=== PATIENT | male | born 1975 | race African-American/Black ===

== ENCOUNTER 2016-09-01 20:35 | Emergency (ER) | payer MEDICAID, OTHER ==
[~2016-09-01] VITALS: Ht 170.2 cm; Wt 95.5 kg
[~2016-09-01 20:35] MED LIST: BENZ1TAB70 PO; GLIM4 PO; HALO10 PO; METF500T4 PO; OLAN15TA2 PO
[2016-09-01 21:47] LABS: BASOPHILS % (AUTO) 0.8 % (0.0-2.0); EOSINOPHILS % (AUTO) 1.8 % (1.0-6.0); HEMATOCRIT 39.5 % (41-53); HEMOGLOBIN 13.1 g/dL (13.5-17.5); LYMPHOCYTES # (AUTO) 2.9 K/uL (1.0-4.8); LYMPHOCYTES % (AUTO) 52.8 % (22.0-44.0); MEAN CORPUSCULAR HEMOGLOBIN 31.1 pg (26.0-34.0); MEAN CORPUSCULAR HGB CONC 33.3 G/dL (31.0-37.0); MEAN CORPUSCULAR VOLUME 93 fL (80-100); MONOCYTES # (AUTO) 0.3 K/uL (0.1-1.0); MONOCYTES % (AUTO) 5.9 % (2.0-9.0); NEUTROPHILS # (AUTO) 2.1 K/uL (1.8-7.7); NEUTROPHILS % (AUTO) 38.7 % (40.0-70.0); PLATELET COUNT (AUTO) 179 K/uL (150-450); RED BLOOD CELL COUNT(AUTO) 4.22 MIL/uL (4.50-5.90); RED CELL DISTRIBUTION WIDTH 14.3 % (11.5-14.5); WHITE BLOOD COUNT (AUTO) 5.4 K/uL (4.5-11.0)
[2016-09-01 21:58] LABS: ANION GAP 10 mmol/L (8-16); CALCIUM, TOTAL 8.8 mg/dL (8.8-10.5); CARBON DIOXIDE 27 mmol/L (22-29); CHLORIDE 103 mmol/L (98-107); CREATININE 0.71 mg/dL (0.60-1.30); GLOMERULAR FILTR. RATE CALC > 60 mL/min (>60); POTASSIUM 3.7 mmol/L (3.5-5.1); SODIUM SERUM 140 mmol/L (136-145); UREA NITROGEN, BLOOD 7 mg/dL (7-18)
[2016-09-01 22:05] LABS: ALANINE AMINOTRANSFERASE 25 U/L (12-78); ALBUMIN 3.5 g/dL (3.4-5.0); ASPARTATE AMINOTRANSFERASE < 5 U/L (15-37); BILIRUBIN,TOTAL 0.3 mg/dL (0.1-1.0)
[2016-09-01 23:20] VITALS: BP 152/88
[2016-09-01] MEDS ORDERED: LORazepam 2 MG TABLET PO ONE (23:30)
[2016-09-01] MEDS ORDERED: OLANZapine 5 MG TABLET PO ONE (23:30)
== END 2016-09-01 23:36 | disposition home or self-care (01) ==
LOC: EMS 20:39
DX: F20.0 Paranoid schizophrenia (principal); F31.9 Bipolar disorder, unspecified; I10 Essential (primary) hypertension; E11.9 Type 2 diabetes mellitus without complications; F17.210 Nicotine dependence, cigarettes, uncomplicated
CPT/HCPCS: 36415; 80053; 80307; 85025; 99284; G0480

== ENCOUNTER 2016-09-13 14:38 | Inpatient (IN) | payer MEDICAID, OTHER ==
[~2016-09-13] VITALS: Ht 170.2 cm; Wt 90.5 kg
[2016-09-13 14:56] LABS: GLUCOSE,POINT OF CARE 112 MG/DL (70-110)
[2016-09-13 15:19] LABS: BASOPHILS % (AUTO) 0.8 % (0.0-2.0); EOSINOPHILS % (AUTO) 1.1 % (1.0-6.0); HEMATOCRIT 40.2 % (41-53); HEMOGLOBIN 13.1 g/dL (13.5-17.5); LYMPHOCYTES # (AUTO) 1.6 K/uL (1.0-4.8); LYMPHOCYTES % (AUTO) 44.1 % (22.0-44.0); MEAN CORPUSCULAR HEMOGLOBIN 30.9 pg (26.0-34.0); MEAN CORPUSCULAR HGB CONC 32.7 G/dL (31.0-37.0); MEAN CORPUSCULAR VOLUME 94 fL (80-100); MONOCYTES # (AUTO) 0.3 K/uL (0.1-1.0); MONOCYTES % (AUTO) 7.7 % (2.0-9.0); NEUTROPHILS # (AUTO) 1.7 K/uL (1.8-7.7); NEUTROPHILS % (AUTO) 46.3 % (40.0-70.0); PLATELET COUNT (AUTO) 198 K/uL (150-450); RED BLOOD CELL COUNT(AUTO) 4.26 MIL/uL (4.50-5.90); RED CELL DISTRIBUTION WIDTH 14.8 % (11.5-14.5); WHITE BLOOD COUNT (AUTO) 3.7 K/uL (4.5-11.0)
[2016-09-13 15:23] LABS: ANION GAP 9 mmol/L (8-16); CALCIUM, TOTAL 8.9 mg/dL (8.8-10.5); CARBON DIOXIDE 28 mmol/L (22-29); CHLORIDE 103 mmol/L (98-107); CREATININE 0.65 mg/dL (0.60-1.30); GLOMERULAR FILTR. RATE CALC > 60 mL/min (>60); POTASSIUM 3.2 mmol/L (3.5-5.1); SODIUM SERUM 140 mmol/L (136-145); UREA NITROGEN, BLOOD 13 mg/dL (7-18)
[2016-09-13 15:29] LABS: ALANINE AMINOTRANSFERASE 32 U/L (12-78); ALBUMIN 3.6 g/dL (3.4-5.0); ASPARTATE AMINOTRANSFERASE 9 U/L (15-37); BILIRUBIN,TOTAL 0.6 mg/dL (0.1-1.0); TOTAL PROTEIN, SERUM 7.2 g/dL (6.4-8.2)
[2016-09-13] MEDS ORDERED: ZOLPIDEM TARTRATE 10 MG TABLET PO PRN (17:00)
[2016-09-13] MEDS ORDERED: LORazepam 2 MG TABLET PO PRN (17:00)
[2016-09-13] MEDS ORDERED: HALOPERIDOL 5 MG TABLET PO PRN (17:00)
[2016-09-13] MEDS ORDERED: OLAN10TA3 PO (17:01)
[2016-09-13] MEDS ORDERED: POTASSIUM CHLORIDE 10% 40 MEQ/30 ML LIQUID UDCUP PO ONE (19:45)
[2016-09-13] MEDS ORDERED: -PHARMACY VACCINE NOTE- MISC ONE ×2 (23:00)
[2016-09-14 04:57] LABS: GLUCOSE,POINT OF CARE 117 MG/DL (70-110)
[2016-09-14 06:55] VITALS: BP 107/65
[2016-09-14 08:04] LABS: ALANINE AMINOTRANSFERASE 30 U/L (12-78); ALBUMIN 3.1 g/dL (3.4-5.0); ANION GAP 8 mmol/L (8-16); ASPARTATE AMINOTRANSFERASE 5 U/L (15-37); BILIRUBIN,TOTAL 0.5 mg/dL (0.1-1.0); CALCIUM, TOTAL 8.5 mg/dL (8.8-10.5); CARBON DIOXIDE 28 mmol/L (22-29); CHLORIDE 107 mmol/L (98-107); CREATININE 0.77 mg/dL (0.60-1.30); GLOMERULAR FILTR. RATE CALC > 60 mL/min (>60); POTASSIUM 3.6 mmol/L (3.5-5.1); SODIUM SERUM 143 mmol/L (136-145); TOTAL PROTEIN, SERUM 6.3 g/dL (6.4-8.2); UREA NITROGEN, BLOOD 13 mg/dL (7-18)
[2016-09-14 08:07] LABS: HEMOGLOBIN A1C 8.4 % (4.5-6.2)
[2016-09-14] MEDS: GLIMEPIRIDE 4 MG TABLET PO SCH (09:02)
[2016-09-14] MEDS: MetFORMIN HCL 500 MG TABLET PO SCH ×2 (09:03→16:25)
[2016-09-14] MEDS ORDERED: INSULIN ASPART 100 UNITS/ML SQ PRN (11:45)
[2016-09-14] MEDS ORDERED: GLUCAGON,HUMAN RECOMBINANT 1 MG VIAL IM PRN (11:45)
[2016-09-14 12:18] VITALS: BP 121/57
[2016-09-14 13:16] VITALS: BP 147/76
[2016-09-14 16:14] VITALS: BP 123/77
[2016-09-14] MEDS ORDERED: BENZTROPINE MESYLATE 1 MG TABLET PO ONE (20:00)
[2016-09-14] MEDS: OLANZapine 10 MG TABLET PO SCH (20:53)
[2016-09-14] MEDS: HALOPERIDOL 10 MG TABLET PO SCH (20:54)
[2016-09-15 00:09] VITALS: BP 132/77
[2016-09-15 06:22] LABS: GLUCOSE,POINT OF CARE 77 MG/DL (70-110)
[2016-09-15] MEDS: GLIMEPIRIDE 4 MG TABLET PO SCH (06:35)
[2016-09-15] MEDS: MetFORMIN HCL 500 MG TABLET PO SCH ×2 (06:35→16:52)
[2016-09-15] MEDS: BENZTROPINE MESYLATE 1 MG TABLET PO SCH ×2 (08:57→17:00)
[2016-09-15 09:00] VITALS: BP 139/79
[2016-09-15 11:26] LABS: GLUCOSE,POINT OF CARE 78 MG/DL (70-110)
[2016-09-15 16:11] VITALS: BP 127/73
[2016-09-15 17:23] LABS: GLUCOSE COMMENT 1 Received Meds; GLUCOSE,POINT OF CARE 112 MG/DL (70-110)
[2016-09-15] MEDS: OLANZapine 10 MG TABLET PO SCH (20:22)
[2016-09-15] MEDS: HALOPERIDOL 10 MG TABLET PO SCH (20:22)
[2016-09-15 22:02] LABS: GLUCOSE,POINT OF CARE 112 MG/DL (70-110)
[2016-09-16 00:59] VITALS: BP 140/80
[2016-09-16] MEDS: MetFORMIN HCL 500 MG TABLET PO SCH ×2 (06:27→16:12)
[2016-09-16 06:47] LABS: GLUCOSE,POINT OF CARE 99 MG/DL (70-110)
[2016-09-16] MEDS: GLIMEPIRIDE 4 MG TABLET PO SCH (07:01)
[2016-09-16 08:29] VITALS: BP 137/70
[2016-09-16] MEDS: BENZTROPINE MESYLATE 1 MG TABLET PO SCH ×2 (08:46→16:12)
[2016-09-16 11:32] LABS: GLUCOSE,POINT OF CARE 78 MG/DL (70-110)
[2016-09-16 11:32] LABS: GLUCOSE COMMENT 1 Juice/Food/D50 Given; GLUCOSE,POINT OF CARE 67 MG/DL (70-110)
[2016-09-16 16:11] LABS: GLUCOSE,POINT OF CARE 101 MG/DL (70-110)
[2016-09-16] MEDS: HALOPERIDOL 10 MG TABLET PO SCH (20:19)
[2016-09-16] MEDS: OLANZapine 10 MG TABLET PO SCH (20:19)
[2016-09-16 22:06] VITALS: BP 149/75
[2016-09-16 22:32] LABS: GLUCOSE,POINT OF CARE 84 MG/DL (70-110)
[2016-09-17 00:08] VITALS: BP 131/77
[2016-09-17 06:26] LABS: GLUCOSE,POINT OF CARE 77 MG/DL (70-110)
[2016-09-17] MEDS: MetFORMIN HCL 500 MG TABLET PO SCH ×2 (07:02→17:19)
[2016-09-17] MEDS: GLIMEPIRIDE 4 MG TABLET PO SCH (07:02)
[2016-09-17 08:39] VITALS: BP 136/81
[2016-09-17] MEDS: BENZTROPINE MESYLATE 1 MG TABLET PO SCH ×2 (08:41→17:19)
[2016-09-17 11:52] LABS: GLUCOSE,POINT OF CARE 109 MG/DL (70-110)
[2016-09-17 16:28] VITALS: BP 133/85
[2016-09-17 17:16] LABS: GLUCOSE,POINT OF CARE 87 MG/DL (70-110)
[2016-09-17] MEDS: HALOPERIDOL 10 MG TABLET PO SCH (20:35)
[2016-09-17] MEDS: OLANZapine 10 MG TABLET PO SCH (20:35)
[2016-09-17 20:46] LABS: GLUCOSE,POINT OF CARE 82 MG/DL (70-110)
[2016-09-18 00:10] VITALS: BP 131/63
[2016-09-18 06:36] LABS: GLUCOSE,POINT OF CARE 91 MG/DL (70-110)
[2016-09-18] MEDS: GLIMEPIRIDE 4 MG TABLET PO SCH (06:49)
[2016-09-18] MEDS: MetFORMIN HCL 500 MG TABLET PO SCH ×2 (06:49→17:07)
[2016-09-18 08:36] VITALS: BP 135/84
[2016-09-18] MEDS: BENZTROPINE MESYLATE 1 MG TABLET PO SCH ×2 (08:44→17:07)
[2016-09-18 11:22] LABS: GLUCOSE,POINT OF CARE 91 MG/DL (70-110)
[2016-09-18 16:21] VITALS: BP 143/88
[2016-09-18 16:56] LABS: GLUCOSE,POINT OF CARE 86 MG/DL (70-110)
[2016-09-18 20:11] LABS: GLUCOSE,POINT OF CARE 77 MG/DL (70-110)
[2016-09-18] MEDS: HALOPERIDOL 10 MG TABLET PO SCH (20:11)
[2016-09-18] MEDS: OLANZapine 10 MG TABLET PO SCH (20:11)
[2016-09-19 00:49] VITALS: BP 138/83
[2016-09-19 06:27] LABS: GLUCOSE,POINT OF CARE 88 MG/DL (70-110)
[2016-09-19] MEDS: GLIMEPIRIDE 4 MG TABLET PO SCH (06:49)
[2016-09-19] MEDS: MetFORMIN HCL 500 MG TABLET PO SCH ×2 (06:49→16:18)
[2016-09-19 08:56] VITALS: BP 133/65
[2016-09-19] MEDS: BENZTROPINE MESYLATE 1 MG TABLET PO SCH ×2 (09:14→16:18)
[2016-09-19 11:11] LABS: GLUCOSE,POINT OF CARE 113 MG/DL (70-110)
[2016-09-19 16:00] VITALS: BP 139/79
[2016-09-19 16:21] LABS: GLUCOSE,POINT OF CARE 110 MG/DL (70-110)
[2016-09-19] MEDS: OLANZapine 10 MG TABLET PO SCH (20:08)
[2016-09-19] MEDS: HALOPERIDOL 10 MG TABLET PO SCH (20:08)
[2016-09-19 20:11] LABS: GLUCOSE,POINT OF CARE 96 MG/DL (70-110)
[2016-09-20 04:49] VITALS: BP 130/75
[2016-09-20 06:32] LABS: GLUCOSE,POINT OF CARE 92 MG/DL (70-110)
[2016-09-20] MEDS: GLIMEPIRIDE 4 MG TABLET PO SCH (06:47)
[2016-09-20] MEDS: MetFORMIN HCL 500 MG TABLET PO SCH ×2 (06:47→16:15)
[2016-09-20] MEDS: BENZTROPINE MESYLATE 1 MG TABLET PO SCH ×2 (08:38→16:15)
[2016-09-20 08:52] VITALS: BP 135/86
[2016-09-20 11:27] LABS: GLUCOSE,POINT OF CARE 79 MG/DL (70-110)
[2016-09-20 16:33] VITALS: BP 140/77
[2016-09-20 19:16] LABS: GLUCOSE,POINT OF CARE 81 MG/DL (70-110)
[2016-09-20] MEDS: HALOPERIDOL 10 MG TABLET PO SCH (20:35)
[2016-09-20] MEDS: OLANZapine 10 MG TABLET PO SCH (20:35)
[2016-09-20 21:11] LABS: GLUCOSE,POINT OF CARE 92 MG/DL (70-110)
[2016-09-21 01:09] VITALS: BP 137/83
[2016-09-21 06:31] LABS: GLUCOSE,POINT OF CARE 93 MG/DL (70-110)
[2016-09-21] MEDS: GLIMEPIRIDE 4 MG TABLET PO SCH (06:54)
[2016-09-21] MEDS: MetFORMIN HCL 500 MG TABLET PO SCH (06:54)
[2016-09-21] MEDS: BENZTROPINE MESYLATE 1 MG TABLET PO SCH (08:42)
[2016-09-21 08:59] VITALS: BP 145/69
[2016-09-21 11:31] LABS: GLUCOSE,POINT OF CARE 81 MG/DL (70-110)
== END 2016-09-21 14:30 | disposition home or self-care (01) | DRG 750 ==
LOC: EMS 14:40 → AHU 20:26 → B2S 09-14 13:04
PROVIDERS: ADMIT Psychiatry & Neurology Psychiatry; ATTEND Psychiatry & Neurology Psychiatry
DX: F20.0 Paranoid schizophrenia (principal); R45.851 Suicidal ideations; E11.9 Type 2 diabetes mellitus without complications; D64.9 Anemia, unspecified; I10 Essential (primary) hypertension; E87.6 Hypokalemia; F17.210 Nicotine dependence, cigarettes, uncomplicated; F31.9 Bipolar disorder, unspecified; Z79.899 Other long term (current) drug therapy; Z79.84 Long term (current) use of oral hypoglycemic drugs
CPT/HCPCS: 82962; 83036; 99285; G0480

== ENCOUNTER 2016-10-03 16:49 | Emergency (ER) | payer MEDICAID, OTHER ==
[~2016-10-03] VITALS: Ht 170.2 cm; Wt 59.1 kg
[~2016-10-03 16:49] MED LIST changes: +OLAN10TA3 PO; -OLAN15TA2 PO
[2016-10-03 17:07] LABS: GLUCOSE,POINT OF CARE 103 MG/DL (70-110)
[2016-10-03 17:30] LABS: BASOPHILS % (AUTO) 1.4 % (0.0-2.0); EOSINOPHILS % (AUTO) 0.9 % (1.0-6.0); HEMATOCRIT 40.4 % (41-53); HEMOGLOBIN 13.1 g/dL (13.5-17.5); LYMPHOCYTES # (AUTO) 2.1 K/uL (1.0-4.8); LYMPHOCYTES % (AUTO) 37.8 % (22.0-44.0); MEAN CORPUSCULAR HGB CONC 32.5 G/dL (31.0-37.0); MEAN CORPUSCULAR VOLUME 95 fL (80-100); MONOCYTES # (AUTO) 0.2 K/uL (0.1-1.0); MONOCYTES % (AUTO) 4.3 % (2.0-9.0); NEUTROPHILS # (AUTO) 3.1 K/uL (1.8-7.7); NEUTROPHILS % (AUTO) 55.6 % (40.0-70.0); PLATELET COUNT (AUTO) 221 K/uL (150-450); RED BLOOD CELL COUNT(AUTO) 4.24 MIL/uL (4.50-5.90); RED CELL DISTRIBUTION WIDTH 15.4 % (11.5-14.5); WHITE BLOOD COUNT (AUTO) 5.5 K/uL (4.5-11.0)
[2016-10-03 17:40] LABS: ANION GAP 10 mmol/L (8-16); CALCIUM, TOTAL 9.1 mg/dL (8.8-10.5); CARBON DIOXIDE 30 mmol/L (22-29); CHLORIDE 109 mmol/L (98-107); CREATININE 0.75 mg/dL (0.60-1.30); GLOMERULAR FILTR. RATE CALC > 60 mL/min (>60); POTASSIUM 4.2 mmol/L (3.5-5.1); SODIUM SERUM 149 mmol/L (136-145); UREA NITROGEN, BLOOD 14 mg/dL (7-18)
[2016-10-03 17:46] LABS: ALANINE AMINOTRANSFERASE 33 U/L (12-78); ALBUMIN 3.8 g/dL (3.4-5.0); ASPARTATE AMINOTRANSFERASE 9 U/L (15-37); BILIRUBIN,TOTAL 0.5 mg/dL (0.1-1.0); TOTAL PROTEIN, SERUM 7.4 g/dL (6.4-8.2)
[2016-10-03] MEDS ORDERED: OLANZapine 5 MG TABLET PO ONE (20:15)
[2016-10-03 20:23] VITALS: BP 133/71
== END 2016-10-03 20:25 | disposition home or self-care (01) ==
LOC: EMS 16:51 → EEVIPCON 16:51 → EMS 20:25
DX: F20.0 Paranoid schizophrenia (principal); R42 Dizziness and giddiness; F31.9 Bipolar disorder, unspecified; E11.9 Type 2 diabetes mellitus without complications; I10 Essential (primary) hypertension; F17.210 Nicotine dependence, cigarettes, uncomplicated
CPT/HCPCS: 36415; 80053; 80307; 82962; 85025; 99284; G0480

== ENCOUNTER 2016-10-04 06:55 | Inpatient (IN) | payer MEDICAID, OTHER ==
[~2016-10-04] VITALS: Ht 170.2 cm; Wt 88.7 kg
[2016-10-04 07:41] LABS: BASOPHILS # (AUTO) 0.04 K/uL (0.00-0.20); BASOPHILS % (AUTO) 0.9 % (0.0-2.0); EOSINOPHILS # (AUTO) 0.09 K/uL (0.00-0.70); EOSINOPHILS % (AUTO) 1.97 % (1.0-6.0); HEMATOCRIT 41.9 % (41-53); LYMPHOCYTES # (AUTO) 1.7 K/uL (1.0-4.8); LYMPHOCYTES % (AUTO) 39.6 % (22.0-44.0); MEAN CORPUSCULAR HEMOGLOBIN 31.4 pg (26.0-34.0); MEAN CORPUSCULAR HGB CONC 33.3 G/dL (31.0-37.0); MEAN CORPUSCULAR VOLUME 94 fL (80-100); MONOCYTES # (AUTO) 0.3 K/uL (0.1-1.0); MONOCYTES % (AUTO) 7.6 % (2.0-9.0); NEUTROPHILS # (AUTO) 2.2 K/uL (1.8-7.7); NEUTROPHILS % (AUTO) 49.9 % (40.0-70.0); PLATELET COUNT (AUTO) 216 K/uL (150-450); RED BLOOD CELL COUNT(AUTO) 4.45 MIL/uL (4.50-5.90); WHITE BLOOD COUNT (AUTO) 4.4 K/uL (4.5-11.0)
[2016-10-04 07:42] LABS: GLUCOSE,POINT OF CARE 126 MG/DL (70-110)
[2016-10-04] MEDS ORDERED: DiphenhydrAMINE HCL 25 MG CAPSULE PO ONE (07:45)
[2016-10-04] MEDS ORDERED: HALOPERIDOL 5 MG TABLET PO ONE (07:45)
[2016-10-04 07:51] LABS: ANION GAP 8 mmol/L (8-16); CARBON DIOXIDE 30 mmol/L (22-29); CHLORIDE 104 mmol/L (98-107); CREATININE 0.72 mg/dL (0.60-1.30); GLOMERULAR FILTR. RATE CALC > 60 mL/min (>60); POTASSIUM 3.8 mmol/L (3.5-5.1); SODIUM SERUM 142 mmol/L (136-145); UREA NITROGEN, BLOOD 15 mg/dL (7-18)
[2016-10-04 07:57] LABS: ALANINE AMINOTRANSFERASE 33 U/L (12-78); ALBUMIN 3.7 g/dL (3.4-5.0); ASPARTATE AMINOTRANSFERASE 5 U/L (15-37); BILIRUBIN,TOTAL 0.5 mg/dL (0.1-1.0); TOTAL PROTEIN, SERUM 7.5 g/dL (6.4-8.2)
[2016-10-04] MEDS ORDERED: ZOLPIDEM TARTRATE 10 MG TABLET PO PRN (08:00)
[2016-10-04] MEDS ORDERED: LORazepam 2 MG TABLET PO PRN (08:00)
[2016-10-04] MEDS ORDERED: HALOPERIDOL 5 MG TABLET PO PRN (08:00)
[2016-10-04] MEDS ORDERED: -PHARMACY VACCINE NOTE- MISC ONE ×2 (13:15)
[2016-10-04 14:07] LABS: GLUCOSE,POINT OF CARE 179 MG/DL (70-110)
[2016-10-04] MEDS ORDERED: INSULIN ASPART 100 UNITS/ML SQ PRN (14:30)
[2016-10-04] MEDS ORDERED: GLUCAGON,HUMAN RECOMBINANT 1 MG VIAL IM PRN (15:30)
[2016-10-04 16:11] VITALS: BP 139/81
[2016-10-04] MEDS: GLIMEPIRIDE 4 MG TABLET PO SCH (16:12)
[2016-10-04] MEDS: MetFORMIN HCL 500 MG TABLET PO SCH (16:13)
[2016-10-04 16:52] LABS: GLUCOSE,POINT OF CARE 137 MG/DL (70-110)
[2016-10-04] MEDS ORDERED: LISINOPRIL 20 MG TABLET PO SCH (17:00)
[2016-10-04 20:20] VITALS: BP 128/80
[2016-10-05 06:12] LABS: GLUCOSE,POINT OF CARE 70 MG/DL (70-110)
[2016-10-05 06:35] VITALS: BP 139/79
[2016-10-05] MEDS: GLIMEPIRIDE 4 MG TABLET PO SCH (06:37)
[2016-10-05] MEDS: MetFORMIN HCL 500 MG TABLET PO SCH ×3 (06:37→19:13)
[2016-10-05 08:17] VITALS: BP 111/54
[2016-10-05] MEDS: LISINOPRIL 10 MG TABLET PO SCH ×2 (08:39→17:36)
[2016-10-05 08:40] VITALS: BP 138/81
[2016-10-05] MEDS: BENZTROPINE MESYLATE 1 MG TABLET PO SCH ×2 (09:36→17:36)
[2016-10-05 11:07] LABS: GLUCOSE,POINT OF CARE 62 MG/DL (70-110)
[2016-10-05 11:22] LABS: GLUCOSE,POINT OF CARE 84 MG/DL (70-110)
[2016-10-05 17:00] VITALS: BP 135/79
[2016-10-05] MEDS: OLANZapine 10 MG TABLET PO SCH (21:40)
[2016-10-05] MEDS: HALOPERIDOL 10 MG TABLET PO SCH (21:40)
[2016-10-05 23:51] LABS: GLUCOSE,POINT OF CARE 60 MG/DL (70-110)
[2016-10-05 23:56] LABS: GLUCOSE,POINT OF CARE 73 MG/DL (70-110)
[2016-10-06 00:15] VITALS: BP 138/88
[2016-10-06 06:22] LABS: GLUCOSE,POINT OF CARE 72 MG/DL (70-110)
[2016-10-06] MEDS: GLIMEPIRIDE 4 MG TABLET PO SCH (06:43)
[2016-10-06] MEDS: MetFORMIN HCL 500 MG TABLET PO SCH ×2 (07:01→18:53)
[2016-10-06 08:00] VITALS: BP 139/63
[2016-10-06] MEDS: LISINOPRIL 10 MG TABLET PO SCH ×2 (09:24→18:53)
[2016-10-06] MEDS: BENZTROPINE MESYLATE 1 MG TABLET PO SCH ×2 (09:24→18:53)
[2016-10-06] MEDS: HALOPERIDOL 10 MG TABLET PO SCH (22:18)
[2016-10-06] MEDS: OLANZapine 10 MG TABLET PO SCH (22:18)
[2016-10-07 06:29] VITALS: BP 143/89
[2016-10-07 07:11] LABS: GLUCOSE,POINT OF CARE 78 MG/DL (70-110)
[2016-10-07] MEDS: GLIMEPIRIDE 4 MG TABLET PO SCH (07:17)
[2016-10-07] MEDS: MetFORMIN HCL 500 MG TABLET PO SCH ×2 (07:18→17:42)
[2016-10-07 08:52] VITALS: BP 129/76
[2016-10-07] MEDS: BENZTROPINE MESYLATE 1 MG TABLET PO SCH ×2 (10:16→17:43)
[2016-10-07] MEDS: LISINOPRIL 10 MG TABLET PO SCH ×2 (10:16→17:43)
[2016-10-07 16:14] VITALS: BP 123/77
[2016-10-07 18:21] LABS: GLUCOSE,POINT OF CARE 121 MG/DL (70-110)
[2016-10-07] MEDS: OLANZapine 10 MG TABLET PO SCH (21:00)
[2016-10-07] MEDS: HALOPERIDOL 10 MG TABLET PO SCH (21:00)
[2016-10-08 06:56] VITALS: BP 133/75
[2016-10-08 07:01] LABS: GLUCOSE,POINT OF CARE 81 MG/DL (70-110)
[2016-10-08] MEDS: GLIMEPIRIDE 4 MG TABLET PO SCH (07:02)
[2016-10-08] MEDS: MetFORMIN HCL 500 MG TABLET PO SCH ×2 (07:02→16:52)
[2016-10-08] MEDS: BENZTROPINE MESYLATE 1 MG TABLET PO SCH ×2 (08:56→16:52)
[2016-10-08] MEDS: LISINOPRIL 10 MG TABLET PO SCH ×2 (08:56→16:52)
[2016-10-08 10:03] VITALS: BP 134/91
[2016-10-08 16:25] VITALS: BP 133/91
[2016-10-08] MEDS: HALOPERIDOL 10 MG TABLET PO SCH (21:25)
[2016-10-08] MEDS: OLANZapine 10 MG TABLET PO SCH (21:26)
[2016-10-09 06:27] LABS: GLUCOSE,POINT OF CARE 90 MG/DL (70-110)
[2016-10-09 06:32] VITALS: BP 122/86
[2016-10-09] MEDS: MetFORMIN HCL 500 MG TABLET PO SCH ×2 (06:48→16:49)
[2016-10-09] MEDS: GLIMEPIRIDE 4 MG TABLET PO SCH (06:49)
[2016-10-09 08:53] VITALS: BP 127/74
[2016-10-09] MEDS: BENZTROPINE MESYLATE 1 MG TABLET PO SCH ×2 (09:14→16:49)
[2016-10-09] MEDS: LISINOPRIL 10 MG TABLET PO SCH ×2 (09:14→16:49)
[2016-10-09 16:20] VITALS: BP 145/81
[2016-10-09] MEDS: OLANZapine 10 MG TABLET PO SCH (21:06)
[2016-10-09] MEDS: HALOPERIDOL 10 MG TABLET PO SCH (21:06)
[2016-10-10 01:55] VITALS: BP 136/87
[2016-10-10] MEDS: MetFORMIN HCL 500 MG TABLET PO SCH ×2 (06:34→16:44)
[2016-10-10] MEDS: GLIMEPIRIDE 4 MG TABLET PO SCH (06:34)
[2016-10-10 06:36] LABS: GLUCOSE,POINT OF CARE 81 MG/DL (70-110)
[2016-10-10] MEDS ORDERED: LISI-661 PO (08:15)
[2016-10-10 09:47] VITALS: BP 117/68
[2016-10-10] MEDS: BENZTROPINE MESYLATE 1 MG TABLET PO SCH ×2 (09:57→16:44)
[2016-10-10] MEDS: LISINOPRIL 10 MG TABLET PO SCH ×2 (09:57→16:44)
[2016-10-10 10:00] VITALS: BP 125/62
[2016-10-10 16:20] VITALS: BP 131/86
[2016-10-10] MEDS: HALOPERIDOL 10 MG TABLET PO SCH (20:39)
[2016-10-10] MEDS: OLANZapine 10 MG TABLET PO SCH (20:39)
[2016-10-11 06:00] VITALS: BP 140/86
[2016-10-11 06:12] LABS: GLUCOSE,POINT OF CARE 85 MG/DL (70-110)
[2016-10-11] MEDS: MetFORMIN HCL 500 MG TABLET PO SCH (06:55)
[2016-10-11] MEDS: GLIMEPIRIDE 4 MG TABLET PO SCH (06:55)
[2016-10-11 09:15] VITALS: BP 107/58
[2016-10-11] MEDS: LISINOPRIL 10 MG TABLET PO SCH (09:58)
[2016-10-11] MEDS: BENZTROPINE MESYLATE 1 MG TABLET PO SCH (09:58)
== END 2016-10-11 14:35 | disposition home or self-care (01) | DRG 750 ==
LOC: EMS 06:56 → B2S 11:33
PROVIDERS: ADMIT Psychiatry & Neurology Psychiatry; ATTEND Psychiatry & Neurology Psychiatry
DX: F20.0 Paranoid schizophrenia (principal); E11.9 Type 2 diabetes mellitus without complications; I10 Essential (primary) hypertension; F31.9 Bipolar disorder, unspecified; F17.210 Nicotine dependence, cigarettes, uncomplicated; Z71.6 Tobacco abuse counseling; Z79.899 Other long term (current) drug therapy; Z86.73 Personal history of transient ischemic attack (TIA), and cerebral infarction without residual deficits; Z79.84 Long term (current) use of oral hypoglycemic drugs; Z83.3 Family history of diabetes mellitus; Z82.49 Family history of ischemic heart disease and other diseases of the circulatory system
CPT/HCPCS: 82962; 87081; 99285; 99406; G0480

== ENCOUNTER 2018-01-11 18:20 | Inpatient (IN) | payer MEDICAID, OTHER ==
[~2018-01-11] VITALS: Ht 170.2 cm; Wt 77.1 kg
[~2018-01-11 18:20] MED LIST changes: +LISI-661 PO; +METF-444 PO; -METF500T4 PO
[2018-01-11 21:57] LABS: GLUCOSE,POINT OF CARE 105 MG/DL (70-110)
[2018-01-11 21:59] LABS: BASOPHILS % (AUTO) 1.1 % (0.0-2.0); EOSINOPHILS % (AUTO) 1.1 % (1.0-6.0); HEMATOCRIT 43.1 % (41-53); HEMOGLOBIN 14.5 g/dL (13.5-17.5); LYMPHOCYTES # (AUTO) 1.9 K/uL (1.0-4.8); LYMPHOCYTES % (AUTO) 45.5 % (22.0-44.0); MEAN CORPUSCULAR HEMOGLOBIN 30.9 pg (26.0-34.0); MEAN CORPUSCULAR HGB CONC 33.6 G/dL (31.0-37.0); MEAN CORPUSCULAR VOLUME 92 fL (80-100); MONOCYTES # (AUTO) 0.3 K/uL (0.1-1.0); NEUTROPHILS # (AUTO) 1.8 K/uL (1.8-7.7); NEUTROPHILS % (AUTO) 44.3 % (40.0-70.0); PLATELET COUNT (AUTO) 204 K/uL (150-450); RED BLOOD CELL COUNT(AUTO) 4.69 MIL/uL (4.50-5.90); RED CELL DISTRIBUTION WIDTH 14.9 % (11.5-14.5)
[2018-01-11 22:14] LABS: AMPHET/METH SCREEN,URINE NEGATIVE (NEGATIVE); BARBITURATE SCREEN, URINE NEGATIVE (NEGATIVE); BENZODIAZEPINES SCREEN,URINE NEGATIVE (NEGATIVE); CANNABINOID SCREEN,URINE NEGATIVE (NEGATIVE); COCAINE SCREEN,URINE NEGATIVE (NEGATIVE); METHADONE SCREEN, URINE NEGATIVE (NEGATIVE); OPIATE SCREEN,URINE NEGATIVE (NEGATIVE)
[2018-01-11 22:15] LABS: ANION GAP 6 mmol/L (8-16); CALCIUM, TOTAL 8.9 mg/dL (8.8-10.5); CARBON DIOXIDE 30 mmol/L (22-29); CHLORIDE 106 mmol/L (98-107); GLOMERULAR FILTR. RATE CALC > 60 mL/min (>60); GLUCOSE,RANDOM 106 mg/dL (70-110); POTASSIUM 4.3 mmol/L (3.5-5.1); SODIUM SERUM 142 mmol/L (136-145); UREA NITROGEN, BLOOD 14 mg/dL (7-18)
[2018-01-11 22:22] LABS: ALANINE AMINOTRANSFERASE 28 U/L (12-78); ALKALINE PHOSPHATASE 101 U/L (46-116); ASPARTATE AMINOTRANSFERASE 5 U/L (15-37); BILIRUBIN,TOTAL 0.5 mg/dL (0.1-1.0); TOTAL PROTEIN, SERUM 7.7 g/dL (6.4-8.2)
[2018-01-11 22:27] LABS: PHENCYCLIDINE SCREEN,URINE NEGATIVE (NEGATIVE)
[2018-01-12 03:00] LABS: CHOL/HDL RATIO 2.3 (4.2-7.3); CHOLESTEROL 150 mg/dL (131-200); HDL CHOLESTEROL 65 mg/dL (40-60); LDL CHOL (CALC.) 72 mg/dL (0-130); TRIGLYCERIDES 64 mg/dL (15-150)
[2018-01-12] MEDS ORDERED: LORazepam 2 MG/ML VIAL IM ONE ×2 (10:15→18:30)
[2018-01-12] MEDS ORDERED: DiphenhydrAMINE HCL 50 MG/ML VIAL IM ONE ×2 (10:15→18:30)
[2018-01-12] MEDS ORDERED: HALOPERIDOL LACTATE 5 MG/ML VIAL IM ONE ×2 (10:15→18:30)
[2018-01-12 11:32] VITALS: BP 149/90
[2018-01-12] MEDS ORDERED: INSULIN LISPRO 100 UNITS/ML SQ PRN (13:15)
[2018-01-12] MEDS ORDERED: GLUCAGON,HUMAN RECOMBINANT 1 MG VIAL IM PRN (13:15)
[2018-01-12 15:09] VITALS: BP 126/87
[2018-01-12 16:26] VITALS: BP 133/76
[2018-01-12 16:59] LABS: GLUCOMETER DEV NAME(LOC) BV2S 2; GLUCOSE,POINT OF CARE 102 MG/DL (70-110)
[2018-01-12] MEDS: SULFAMETHOX/TRIMETH DS 800-160 MG/TABLET PO SCH (17:00)
[2018-01-12] MEDS: BACITRACIN 28.4 GM OINTMENT TP SCH (17:00)
[2018-01-12] MEDS: MetFORMIN HCL 500 MG TABLET PO SCH (17:11)
[2018-01-12] MEDS: LISINOPRIL 10 MG TABLET PO SCH (17:12)
[2018-01-12] MEDS ORDERED: LORazepam 2 MG/ML VIAL ONE (18:22)
[2018-01-12] MEDS ORDERED: DiphenhydrAMINE HCL 50 MG/ML VIAL ONE (18:23)
[2018-01-12] MEDS ORDERED: HALOPERIDOL LACTATE 5 MG/ML VIAL ONE (18:23)
[2018-01-12 19:30] VITALS: BP_SYST 133; BP_SYST 135; BP_DIAS 67
[2018-01-12] MEDS ORDERED: DOCUSATE SODIUM 100 MG CAPSULE PO PRN (21:45)
[2018-01-12] MEDS ORDERED: PETROLATUM,WHITE 71 GM JELLY TP PRN (21:45)
[2018-01-12] MEDS ORDERED: MAGNESIUM HYDROXIDE SUSPENSION 30 ML UDCUP PO PRN (21:45)
[2018-01-12] MEDS ORDERED: ACETAMINOPHEN 325 MG TABLET PO PRN (21:45)
[2018-01-12] MEDS ORDERED: ONDANSETRON HCL 4 MG TABLET PO PRN (21:45)
[2018-01-12] MEDS ORDERED: IBUPROFEN 400 MG TABLET PO PRN (21:45)
[2018-01-12] MEDS ORDERED: ALBUTEROL SULFATE HFA 90 MCG/PUFF 8 GM INHALER IH PRN (21:45)
[2018-01-12] MEDS ORDERED: MAG HYDROX/AL HYDROX/SIMETH ES 30 ML SUSPENSION UDCUP PO PRN (21:45)
[2018-01-13 05:52] VITALS: BP 130/86
[2018-01-13 06:24] LABS: GLUCOMETER DEV NAME(LOC) BV2S 2; GLUCOSE,POINT OF CARE 81 MG/DL (70-110)
[2018-01-13] MEDS: MetFORMIN HCL 500 MG TABLET PO SCH ×2 (06:45→17:46)
[2018-01-13 08:01] LABS: HEMOGLOBIN A1C 6.4 % (4.5-6.2)
[2018-01-13 08:47] LABS: CHOL/HDL RATIO 2.6 (4.2-7.3)
[2018-01-13 08:48] VITALS: BP 139/78
[2018-01-13] MEDS: SULFAMETHOX/TRIMETH DS 800-160 MG/TABLET PO SCH ×2 (08:59→17:46)
[2018-01-13] MEDS: BACITRACIN 28.4 GM OINTMENT TP SCH ×2 (08:59→17:48)
[2018-01-13] MEDS: NICOTINE 14 MG/24 HOUR PATCH TD SCH (09:00)
[2018-01-13] MEDS: LISINOPRIL 10 MG TABLET PO SCH ×2 (09:00→17:47)
[2018-01-13] MEDS: HALOPERIDOL 5 MG TABLET PO PRN (09:12)
[2018-01-13] MEDS: LORazepam 2 MG TABLET PO PRN (09:12)
[2018-01-13 11:09] LABS: GLUCOMETER DEV NAME(LOC) BV2S 2; GLUCOSE,POINT OF CARE 87 MG/DL (70-110)
[2018-01-13 16:13] VITALS: BP 127/85
[2018-01-13 18:19] LABS: GLUCOMETER DEV NAME(LOC) BV2S 2; GLUCOSE,POINT OF CARE 135 MG/DL (70-110)
[2018-01-13] MEDS: HALOPERIDOL 5 MG TABLET PO SCH (20:36)
[2018-01-13 21:00] VITALS: BP 110/60
[2018-01-14 06:23] LABS: GLUCOMETER DEV NAME(LOC) BV2S 2; GLUCOSE,POINT OF CARE 96 MG/DL (70-110)
[2018-01-14 06:53] VITALS: BP 112/63
[2018-01-14] MEDS: MetFORMIN HCL 500 MG TABLET PO SCH ×2 (07:02→16:28)
[2018-01-14 07:33] LABS: GLUCOMETER DEV NAME(LOC) BV2S 2; GLUCOSE,POINT OF CARE 77 MG/DL (70-110)
[2018-01-14 08:00] VITALS: BP 146/71
[2018-01-14] MEDS: SULFAMETHOX/TRIMETH DS 800-160 MG/TABLET PO SCH ×2 (09:09→16:23)
[2018-01-14] MEDS: BENZTROPINE MESYLATE 1 MG TABLET PO SCH ×2 (09:09→16:23)
[2018-01-14] MEDS: NICOTINE 14 MG/24 HOUR PATCH TD SCH (09:10)
[2018-01-14] MEDS: LISINOPRIL 10 MG TABLET PO SCH ×2 (09:10→16:23)
[2018-01-14] MEDS: BACITRACIN 28.4 GM OINTMENT TP SCH ×2 (09:11→16:28)
[2018-01-14 11:02] LABS: GLUCOMETER DEV NAME(LOC) BV2S 2; GLUCOSE,POINT OF CARE 96 MG/DL (70-110)
[2018-01-14 16:20] VITALS: BP 132/82
[2018-01-14 17:23] LABS: GLUCOMETER DEV NAME(LOC) BV2S 2; GLUCOSE,POINT OF CARE 94 MG/DL (70-110)
[2018-01-14] MEDS: LORazepam 2 MG TABLET PO PRN (18:06)
[2018-01-14] MEDS: ZOLPIDEM TARTRATE 10 MG TABLET PO PRN (20:32)
[2018-01-14] MEDS: HALOPERIDOL 5 MG TABLET PO SCH (20:32)
[2018-01-14 21:03] LABS: GLUCOMETER DEV NAME(LOC) BV2S 2; GLUCOSE,POINT OF CARE 81 MG/DL (70-110)
[2018-01-15 05:45] VITALS: BP 116/74
[2018-01-15 07:08] LABS: GLUCOMETER DEV NAME(LOC) BV2S 2; GLUCOSE,POINT OF CARE 86 MG/DL (70-110)
[2018-01-15] MEDS: MetFORMIN HCL 500 MG TABLET PO SCH ×2 (07:11→16:59)
[2018-01-15 08:01] LABS: BASOPHILS % (AUTO) 0.6 % (0.0-2.0); EOSINOPHILS % (AUTO) 3.8 % (1.0-6.0); HEMATOCRIT 39.2 % (41-53); HEMOGLOBIN 13.2 g/dL (13.5-17.5); LYMPHOCYTES # (AUTO) 1.6 K/uL (1.0-4.8); LYMPHOCYTES % (AUTO) 57.1 % (22.0-44.0); MEAN CORPUSCULAR HEMOGLOBIN 30.7 pg (26.0-34.0); MEAN CORPUSCULAR HGB CONC 33.6 G/dL (31.0-37.0); MEAN CORPUSCULAR VOLUME 91 fL (80-100); MONOCYTES # (AUTO) 0.3 K/uL (0.1-1.0); MONOCYTES % (AUTO) 10.3 % (2.0-9.0); NEUTROPHILS # (AUTO) 0.8 K/uL (1.8-7.7); NEUTROPHILS % (AUTO) 28.2 % (40.0-70.0); PLATELET COUNT (AUTO) 189 K/uL (150-450); RED BLOOD CELL COUNT(AUTO) 4.29 MIL/uL (4.50-5.90); RED CELL DISTRIBUTION WIDTH 14.7 % (11.5-14.5)
[2018-01-15 08:30] VITALS: BP 133/75
[2018-01-15] MEDS: SULFAMETHOX/TRIMETH DS 800-160 MG/TABLET PO SCH ×2 (08:44→16:59)
[2018-01-15] MEDS: LISINOPRIL 10 MG TABLET PO SCH ×2 (08:44→16:59)
[2018-01-15] MEDS: BENZTROPINE MESYLATE 1 MG TABLET PO SCH ×2 (08:44→16:59)
[2018-01-15] MEDS: BACITRACIN 28.4 GM OINTMENT TP SCH ×2 (08:44→16:59)
[2018-01-15] MEDS: NICOTINE 14 MG/24 HOUR PATCH TD SCH (08:49)
[2018-01-15 11:49] LABS: GLUCOMETER DEV NAME(LOC) BV2S 2; GLUCOSE,POINT OF CARE 98 MG/DL (70-110)
[2018-01-15 16:38] VITALS: BP 122/71
[2018-01-15 16:54] LABS: GLUCOMETER DEV NAME(LOC) BV2S 2; GLUCOSE,POINT OF CARE 91 MG/DL (70-110)
[2018-01-15] MEDS: LORazepam 2 MG TABLET PO PRN (16:59)
[2018-01-15] MEDS: THIAMINE HCL 100 MG TABLET PO SCH (16:59)
[2018-01-15] MEDS: FOLIC ACID 1 MG TABLET PO SCH (16:59)
[2018-01-15] MEDS: HALOPERIDOL 5 MG TABLET PO SCH (20:18)
[2018-01-15] MEDS: ZOLPIDEM TARTRATE 10 MG TABLET PO PRN (20:53)
[2018-01-15 21:18] LABS: GLUCOMETER DEV NAME(LOC) BV2S 2; GLUCOSE,POINT OF CARE 88 MG/DL (70-110)
[2018-01-16 03:35] VITALS: BP 103/60
[2018-01-16] MEDS: MetFORMIN HCL 500 MG TABLET PO SCH ×2 (07:02→16:33)
[2018-01-16 07:09] LABS: GLUCOMETER DEV NAME(LOC) BV2S 2; GLUCOSE,POINT OF CARE 78 MG/DL (70-110)
[2018-01-16] MEDS: THIAMINE HCL 100 MG TABLET PO SCH ×2 (08:51→16:10)
[2018-01-16] MEDS: FOLIC ACID 1 MG TABLET PO SCH ×2 (08:51→16:10)
[2018-01-16] MEDS: LISINOPRIL 10 MG TABLET PO SCH ×2 (08:51→16:10)
[2018-01-16] MEDS: SULFAMETHOX/TRIMETH DS 800-160 MG/TABLET PO SCH ×2 (08:51→16:10)
[2018-01-16] MEDS: BENZTROPINE MESYLATE 1 MG TABLET PO SCH ×2 (08:51→16:10)
[2018-01-16] MEDS: LORazepam 2 MG TABLET PO PRN ×2 (08:51→16:56)
[2018-01-16] MEDS: NICOTINE 14 MG/24 HOUR PATCH TD SCH (08:51)
[2018-01-16] MEDS: HALOPERIDOL 5 MG TABLET PO PRN (08:51)
[2018-01-16 08:52] VITALS: BP 131/74
[2018-01-16] MEDS: BACITRACIN 28.4 GM OINTMENT TP SCH ×2 (08:52→16:15)
[2018-01-16 11:10] LABS: GLUCOMETER DEV NAME(LOC) BV2S 2; GLUCOSE,POINT OF CARE 91 MG/DL (70-110)
[2018-01-16 16:14] VITALS: BP 118/68
[2018-01-16 17:07] LABS: GLUCOMETER DEV NAME(LOC) BV2S 2; GLUCOSE,POINT OF CARE 98 MG/DL (70-110)
[2018-01-16] MEDS: HALOPERIDOL 5 MG TABLET PO SCH (20:16)
[2018-01-16] MEDS: ZOLPIDEM TARTRATE 10 MG TABLET PO PRN (20:16)
[2018-01-16 21:17] LABS: GLUCOMETER DEV NAME(LOC) BV2S 2; GLUCOSE,POINT OF CARE 87 MG/DL (70-110)
[2018-01-17 03:55] VITALS: BP 124/74
[2018-01-17 06:31] LABS: GLUCOMETER DEV NAME(LOC) BV2S 2; GLUCOSE,POINT OF CARE 80 MG/DL (70-110)
[2018-01-17] MEDS: MetFORMIN HCL 500 MG TABLET PO SCH ×2 (06:37→16:57)
[2018-01-17 08:51] VITALS: BP 126/67
[2018-01-17] MEDS: THIAMINE HCL 100 MG TABLET PO SCH ×2 (09:39→16:58)
[2018-01-17] MEDS: SULFAMETHOX/TRIMETH DS 800-160 MG/TABLET PO SCH ×2 (09:39→16:57)
[2018-01-17] MEDS: LISINOPRIL 10 MG TABLET PO SCH ×2 (09:39→16:58)
[2018-01-17] MEDS: FOLIC ACID 1 MG TABLET PO SCH ×2 (09:39→16:58)
[2018-01-17] MEDS: BENZTROPINE MESYLATE 1 MG TABLET PO SCH ×2 (09:39→16:58)
[2018-01-17] MEDS: NICOTINE 14 MG/24 HOUR PATCH TD SCH (09:44)
[2018-01-17] MEDS: BACITRACIN 28.4 GM OINTMENT TP SCH (09:44)
[2018-01-17 15:14] LABS: GLUCOMETER DEV NAME(LOC) BV2S 2; GLUCOSE,POINT OF CARE 75 MG/DL (70-110)
[2018-01-17 16:17] VITALS: BP 132/70
[2018-01-17 17:02] LABS: GLUCOMETER DEV NAME(LOC) BV2S 2; GLUCOSE,POINT OF CARE 111 MG/DL (70-110)
[2018-01-17] MEDS: HALOPERIDOL 5 MG TABLET PO SCH (20:24)
[2018-01-17] MEDS: ZOLPIDEM TARTRATE 10 MG TABLET PO PRN (20:45)
[2018-01-17 21:04] LABS: GLUCOMETER DEV NAME(LOC) BV2S 2; GLUCOSE,POINT OF CARE 94 MG/DL (70-110)
[2018-01-18 06:14] VITALS: BP 130/86
[2018-01-18] MEDS: MetFORMIN HCL 500 MG TABLET PO SCH ×2 (06:37→16:50)
[2018-01-18 06:41] LABS: GLUCOMETER DEV NAME(LOC) BV2S 2; GLUCOSE,POINT OF CARE 85 MG/DL (70-110)
[2018-01-18 08:00] VITALS: BP 114/67
[2018-01-18] MEDS: SULFAMETHOX/TRIMETH DS 800-160 MG/TABLET PO SCH ×2 (08:37→16:50)
[2018-01-18] MEDS: NICOTINE 14 MG/24 HOUR PATCH TD SCH (08:37)
[2018-01-18] MEDS: THIAMINE HCL 100 MG TABLET PO SCH ×2 (08:37→16:50)
[2018-01-18] MEDS: BENZTROPINE MESYLATE 1 MG TABLET PO SCH ×2 (08:38→16:50)
[2018-01-18] MEDS: LISINOPRIL 10 MG TABLET PO SCH ×2 (08:38→16:51)
[2018-01-18] MEDS: FOLIC ACID 1 MG TABLET PO SCH ×2 (08:38→16:52)
[2018-01-18 11:00] LABS: GLUCOMETER DEV NAME(LOC) BV2S 2; GLUCOSE,POINT OF CARE 86 MG/DL (70-110)
[2018-01-18 16:40] VITALS: BP 118/63
[2018-01-18 16:40] LABS: GLUCOMETER DEV NAME(LOC) BV2S 2; GLUCOSE,POINT OF CARE 93 MG/DL (70-110)
[2018-01-18] MEDS: LORazepam 2 MG TABLET PO PRN (20:35)
[2018-01-18] MEDS: HALOPERIDOL 5 MG TABLET PO SCH (20:35)
[2018-01-18 20:49] LABS: GLUCOMETER DEV NAME(LOC) BV2S 2; GLUCOSE,POINT OF CARE 101 MG/DL (70-110)
[2018-01-18] MEDS: ZOLPIDEM TARTRATE 10 MG TABLET PO PRN (21:44)
[2018-01-19 06:35] LABS: GLUCOMETER DEV NAME(LOC) BV2S 2; GLUCOSE,POINT OF CARE 98 MG/DL (70-110)
[2018-01-19 06:46] VITALS: BP 123/71
[2018-01-19] MEDS: MetFORMIN HCL 500 MG TABLET PO SCH ×2 (06:53→16:29)
[2018-01-19 08:00] VITALS: BP 118/66
[2018-01-19 08:26] LABS: BASOPHILS % (AUTO) 0.8 % (0.0-2.0); EOSINOPHILS % (AUTO) 3.1 % (1.0-6.0); HEMATOCRIT 39.4 % (41-53); HEMOGLOBIN 13.7 g/dL (13.5-17.5); LYMPHOCYTES # (AUTO) 1.9 K/uL (1.0-4.8); LYMPHOCYTES % (AUTO) 58.6 % (22.0-44.0); MEAN CORPUSCULAR HEMOGLOBIN 31.7 pg (26.0-34.0); MEAN CORPUSCULAR HGB CONC 34.8 G/dL (31.0-37.0); MEAN CORPUSCULAR VOLUME 91 fL (80-100); MONOCYTES # (AUTO) 0.4 K/uL (0.1-1.0); MONOCYTES % (AUTO) 12.1 % (2.0-9.0); NEUTROPHILS # (AUTO) 0.8 K/uL (1.8-7.7); NEUTROPHILS % (AUTO) 25.4 % (40.0-70.0); PLATELET COUNT (AUTO) 193 K/uL (150-450); RED BLOOD CELL COUNT(AUTO) 4.32 MIL/uL (4.50-5.90); RED CELL DISTRIBUTION WIDTH 14.6 % (11.5-14.5)
[2018-01-19] MEDS: FOLIC ACID 1 MG TABLET PO SCH ×2 (08:47→16:29)
[2018-01-19] MEDS: LISINOPRIL 10 MG TABLET PO SCH ×2 (08:47→16:29)
[2018-01-19] MEDS: BENZTROPINE MESYLATE 1 MG TABLET PO SCH ×2 (08:47→16:29)
[2018-01-19] MEDS: SULFAMETHOX/TRIMETH DS 800-160 MG/TABLET PO SCH (08:47)
[2018-01-19] MEDS: THIAMINE HCL 100 MG TABLET PO SCH ×2 (08:47→16:29)
[2018-01-19] MEDS: NICOTINE 14 MG/24 HOUR PATCH TD SCH (08:50)
[2018-01-19 16:12] VITALS: BP 112/71
[2018-01-19 16:49] LABS: GLUCOMETER DEV NAME(LOC) BV2S 2; GLUCOSE,POINT OF CARE 90 MG/DL (70-110)
[2018-01-19] MEDS: HALOPERIDOL 5 MG TABLET PO SCH (20:28)
[2018-01-19 20:54] LABS: GLUCOMETER DEV NAME(LOC) BV2S 2; GLUCOSE,POINT OF CARE 106 MG/DL (70-110)
[2018-01-19] MEDS: ZOLPIDEM TARTRATE 10 MG TABLET PO PRN (20:55)
[2018-01-20 01:43] VITALS: BP 124/62
[2018-01-20] MEDS: MetFORMIN HCL 500 MG TABLET PO SCH ×2 (06:39→16:00)
[2018-01-20 07:14] LABS: GLUCOMETER DEV NAME(LOC) BV2S 2; GLUCOSE,POINT OF CARE 95 MG/DL (70-110)
[2018-01-20 09:05] VITALS: BP 102/61
[2018-01-20] MEDS: BENZTROPINE MESYLATE 1 MG TABLET PO SCH ×2 (09:05→16:00)
[2018-01-20] MEDS: NICOTINE 14 MG/24 HOUR PATCH TD SCH (09:05)
[2018-01-20] MEDS: THIAMINE HCL 100 MG TABLET PO SCH ×2 (09:05→16:00)
[2018-01-20] MEDS: LISINOPRIL 10 MG TABLET PO SCH ×2 (09:05→16:00)
[2018-01-20] MEDS: FOLIC ACID 1 MG TABLET PO SCH ×2 (09:05→16:00)
[2018-01-20] MEDS: LORazepam 2 MG TABLET PO PRN ×2 (10:44→16:00)
[2018-01-20] MEDS: HALOPERIDOL 5 MG TABLET PO PRN ×2 (10:44→16:00)
[2018-01-20 16:19] VITALS: BP 111/63
[2018-01-20 17:04] LABS: GLUCOMETER DEV NAME(LOC) BV2S 2; GLUCOSE,POINT OF CARE 85 MG/DL (70-110)
[2018-01-20] MEDS: HALOPERIDOL 5 MG TABLET PO SCH (20:15)
[2018-01-21 04:40] VITALS: BP 117/75
[2018-01-21 06:35] LABS: GLUCOMETER DEV NAME(LOC) BV2S 2; GLUCOSE,POINT OF CARE 98 MG/DL (70-110)
[2018-01-21] MEDS: MetFORMIN HCL 500 MG TABLET PO SCH ×2 (06:48→16:32)
[2018-01-21 08:35] VITALS: BP 127/60
[2018-01-21] MEDS: LISINOPRIL 10 MG TABLET PO SCH ×2 (08:50→16:32)
[2018-01-21] MEDS: THIAMINE HCL 100 MG TABLET PO SCH ×2 (08:50→16:32)
[2018-01-21] MEDS: FOLIC ACID 1 MG TABLET PO SCH ×2 (08:51→16:32)
[2018-01-21] MEDS: NICOTINE 14 MG/24 HOUR PATCH TD SCH (08:51)
[2018-01-21] MEDS: LORazepam 2 MG TABLET PO PRN ×2 (08:51→16:33)
[2018-01-21] MEDS: BENZTROPINE MESYLATE 1 MG TABLET PO SCH ×2 (08:51→16:32)
[2018-01-21 11:38] LABS: GLUCOMETER DEV NAME(LOC) BV2S 2; GLUCOSE,POINT OF CARE 115 MG/DL (70-110)
[2018-01-21] MEDS: HALOPERIDOL 5 MG TABLET PO PRN (14:07)
[2018-01-21 18:21] VITALS: BP 132/79
[2018-01-21] MEDS: ZOLPIDEM TARTRATE 10 MG TABLET PO PRN (20:17)
[2018-01-21] MEDS: HALOPERIDOL 5 MG TABLET PO SCH (20:18)
[2018-01-21 21:09] LABS: GLUCOMETER DEV NAME(LOC) BV2S 2; GLUCOSE,POINT OF CARE 114 MG/DL (70-110)
[2018-01-22 06:23] LABS: GLUCOMETER DEV NAME(LOC) BV2S 2; GLUCOSE,POINT OF CARE 86 MG/DL (70-110)
[2018-01-22] MEDS: MetFORMIN HCL 500 MG TABLET PO SCH ×2 (06:35→16:22)
[2018-01-22 08:05] VITALS: BP 123/60
[2018-01-22] MEDS: THIAMINE HCL 100 MG TABLET PO SCH ×2 (09:15→16:17)
[2018-01-22] MEDS: FOLIC ACID 1 MG TABLET PO SCH ×2 (09:16→16:17)
[2018-01-22] MEDS: BENZTROPINE MESYLATE 1 MG TABLET PO SCH ×2 (09:16→16:17)
[2018-01-22] MEDS: LISINOPRIL 10 MG TABLET PO SCH ×2 (09:16→16:17)
[2018-01-22] MEDS: NICOTINE 14 MG/24 HOUR PATCH TD SCH (09:16)
[2018-01-22] MEDS: LORazepam 2 MG TABLET PO PRN ×2 (13:22→17:25)
[2018-01-22] MEDS: HALOPERIDOL 5 MG TABLET PO PRN (13:23)
[2018-01-22 16:17] VITALS: BP 140/71
[2018-01-22 16:39] LABS: GLUCOMETER DEV NAME(LOC) BV2S 2; GLUCOSE,POINT OF CARE 104 MG/DL (70-110)
[2018-01-22] MEDS: HALOPERIDOL 5 MG TABLET PO SCH (20:00)
[2018-01-22] MEDS: ZOLPIDEM TARTRATE 10 MG TABLET PO PRN (20:00)
[2018-01-23 05:53] VITALS: BP 120/61
[2018-01-23 06:24] LABS: GLUCOMETER DEV NAME(LOC) BV2S 2; GLUCOSE,POINT OF CARE 75 MG/DL (70-110)
[2018-01-23] MEDS: MetFORMIN HCL 500 MG TABLET PO SCH ×2 (07:15→17:01)
[2018-01-23 08:17] VITALS: BP 118/78
[2018-01-23] MEDS: BENZTROPINE MESYLATE 1 MG TABLET PO SCH ×2 (09:50→17:01)
[2018-01-23] MEDS: LISINOPRIL 10 MG TABLET PO SCH ×2 (09:50→17:01)
[2018-01-23] MEDS: FOLIC ACID 1 MG TABLET PO SCH ×2 (09:51→17:01)
[2018-01-23] MEDS: NICOTINE 14 MG/24 HOUR PATCH TD SCH (09:51)
[2018-01-23] MEDS: THIAMINE HCL 100 MG TABLET PO SCH ×2 (09:51→17:01)
[2018-01-23] MEDS ORDERED: LORazepam 2 MG/ML VIAL ONE (10:07)
[2018-01-23] MEDS ORDERED: DiphenhydrAMINE HCL 50 MG/ML VIAL ONE (10:07)
[2018-01-23] MEDS ORDERED: HALOPERIDOL LACTATE 5 MG/ML VIAL ONE (10:07)
[2018-01-23] MEDS ORDERED: LORazepam 2 MG/ML VIAL IM ONE (10:15)
[2018-01-23] MEDS ORDERED: HALOPERIDOL LACTATE 5 MG/ML VIAL IM ONE (10:15)
[2018-01-23] MEDS ORDERED: DiphenhydrAMINE HCL 50 MG/ML VIAL IM ONE (10:15)
[2018-01-23 11:19] LABS: GLUCOMETER DEV NAME(LOC) BV3N5; GLUCOSE,POINT OF CARE 81 MG/DL (70-110)
[2018-01-23 16:00] VITALS: BP 125/76
[2018-01-23] MEDS: HALOPERIDOL 5 MG TABLET PO PRN (17:01)
[2018-01-23] MEDS: LORazepam 2 MG TABLET PO PRN (17:01)
[2018-01-23 17:23] LABS: GLUCOMETER DEV NAME(LOC) BV3N5; GLUCOSE,POINT OF CARE 90 MG/DL (70-110)
[2018-01-23] MEDS: HALOPERIDOL 5 MG TABLET PO SCH (20:57)
[2018-01-23] MEDS: ZOLPIDEM TARTRATE 10 MG TABLET PO PRN (20:57)
[2018-01-24 06:28] LABS: GLUCOMETER DEV NAME(LOC) BV3N5; GLUCOSE,POINT OF CARE 97 MG/DL (70-110)
[2018-01-24] MEDS: MetFORMIN HCL 500 MG TABLET PO SCH ×2 (06:40→16:54)
[2018-01-24 08:00] VITALS: BP 116/70
[2018-01-24 08:14] LABS: BASOPHILS % (AUTO) 0.8 % (0.0-2.0); EOSINOPHILS % (AUTO) 1.9 % (1.0-6.0); HEMATOCRIT 40.3 % (41-53); HEMOGLOBIN 13.7 g/dL (13.5-17.5); LYMPHOCYTES # (AUTO) 1.7 K/uL (1.0-4.8); LYMPHOCYTES % (AUTO) 64.2 % (22.0-44.0); MEAN CORPUSCULAR HEMOGLOBIN 30.9 pg (26.0-34.0); MEAN CORPUSCULAR HGB CONC 34.1 G/dL (31.0-37.0); MEAN CORPUSCULAR VOLUME 91 fL (80-100); MONOCYTES # (AUTO) 0.2 K/uL (0.1-1.0); MONOCYTES % (AUTO) 7.9 % (2.0-9.0); NEUTROPHILS # (AUTO) 0.7 K/uL (1.8-7.7); NEUTROPHILS % (AUTO) 25.2 % (40.0-70.0); PLATELET COUNT (AUTO) 172 K/uL (150-450); RED BLOOD CELL COUNT(AUTO) 4.45 MIL/uL (4.50-5.90)
[2018-01-24] MEDS: BENZTROPINE MESYLATE 1 MG TABLET PO SCH ×2 (08:49→16:55)
[2018-01-24] MEDS: LORazepam 2 MG TABLET PO PRN ×2 (08:49→16:55)
[2018-01-24] MEDS: THIAMINE HCL 100 MG TABLET PO SCH ×2 (08:50→16:54)
[2018-01-24] MEDS: NICOTINE 14 MG/24 HOUR PATCH TD SCH (08:50)
[2018-01-24] MEDS: FOLIC ACID 1 MG TABLET PO SCH ×2 (08:50→16:55)
[2018-01-24] MEDS: LISINOPRIL 10 MG TABLET PO SCH ×2 (08:50→16:55)
[2018-01-24 16:00] VITALS: BP 132/67
[2018-01-24 16:39] LABS: GLUCOMETER DEV NAME(LOC) BV3N5; GLUCOSE,POINT OF CARE 84 MG/DL (70-110)
[2018-01-24] MEDS: HALOPERIDOL 10 MG TABLET PO SCH (20:44)
[2018-01-24] MEDS: ZOLPIDEM TARTRATE 10 MG TABLET PO PRN (20:44)
[2018-01-24] MEDS ORDERED: HALOPERIDOL 5 MG TABLET PO SCH (21:00)
[2018-01-25 01:04] VITALS: BP 126/60
[2018-01-25 05:59] LABS: GLUCOMETER DEV NAME(LOC) BV3N5; GLUCOSE,POINT OF CARE 80 MG/DL (70-110)
[2018-01-25] MEDS: MetFORMIN HCL 500 MG TABLET PO SCH ×2 (06:11→16:25)
[2018-01-25 08:07] VITALS: BP 138/64
[2018-01-25] MEDS: LORazepam 2 MG TABLET PO PRN ×3 (08:38→21:06)
[2018-01-25] MEDS: LISINOPRIL 10 MG TABLET PO SCH ×2 (08:38→16:25)
[2018-01-25] MEDS: FOLIC ACID 1 MG TABLET PO SCH ×2 (08:38→16:25)
[2018-01-25] MEDS: BENZTROPINE MESYLATE 1 MG TABLET PO SCH ×2 (08:39→16:25)
[2018-01-25] MEDS: DIVALPROEX SODIUM 500 MG DR TABLET PO SCH ×2 (08:39→16:25)
[2018-01-25] MEDS: THIAMINE HCL 100 MG TABLET PO SCH ×2 (08:39→16:25)
[2018-01-25] MEDS: NICOTINE 14 MG/24 HOUR PATCH TD SCH (08:39)
[2018-01-25 16:00] VITALS: BP 127/89
[2018-01-25] MEDS: HALOPERIDOL 5 MG TABLET PO PRN (16:26)
[2018-01-25 16:59] LABS: GLUCOMETER DEV NAME(LOC) BV3N5; GLUCOSE,POINT OF CARE 90 MG/DL (70-110)
[2018-01-25] MEDS: ZOLPIDEM TARTRATE 10 MG TABLET PO PRN (21:06)
[2018-01-25] MEDS: HALOPERIDOL 10 MG TABLET PO SCH (21:06)
[2018-01-26 06:26] VITALS: BP 115/70
[2018-01-26 06:29] LABS: GLUCOMETER DEV NAME(LOC) BV3N5; GLUCOSE,POINT OF CARE 82 MG/DL (70-110)
[2018-01-26] MEDS: MetFORMIN HCL 500 MG TABLET PO SCH ×2 (07:09→16:31)
[2018-01-26 08:04] VITALS: BP 112/64
[2018-01-26 08:29] LABS: BASOPHILS % (AUTO) 0.9 % (0.0-2.0); EOSINOPHILS % (AUTO) 1.8 % (1.0-6.0); HEMATOCRIT 39.9 % (41-53); HEMOGLOBIN 13.5 g/dL (13.5-17.5); LYMPHOCYTES % (AUTO) 64.8 % (22.0-44.0); MEAN CORPUSCULAR HEMOGLOBIN 30.7 pg (26.0-34.0); MEAN CORPUSCULAR HGB CONC 33.7 G/dL (31.0-37.0); MEAN CORPUSCULAR VOLUME 91 fL (80-100); MONOCYTES # (AUTO) 0.2 K/uL (0.1-1.0); MONOCYTES % (AUTO) 7.3 % (2.0-9.0); NEUTROPHILS # (AUTO) 0.8 K/uL (1.8-7.7); NEUTROPHILS % (AUTO) 25.2 % (40.0-70.0); PLATELET COUNT (AUTO) 164 K/uL (150-450); RED BLOOD CELL COUNT(AUTO) 4.38 MIL/uL (4.50-5.90); RED CELL DISTRIBUTION WIDTH 14.2 % (11.5-14.5)
[2018-01-26] MEDS: DIVALPROEX SODIUM 500 MG DR TABLET PO SCH ×2 (09:12→16:30)
[2018-01-26] MEDS: FOLIC ACID 1 MG TABLET PO SCH ×2 (09:12→16:30)
[2018-01-26] MEDS: LISINOPRIL 10 MG TABLET PO SCH ×2 (09:12→16:31)
[2018-01-26] MEDS: BENZTROPINE MESYLATE 1 MG TABLET PO SCH ×2 (09:12→16:30)
[2018-01-26] MEDS: THIAMINE HCL 100 MG TABLET PO SCH ×2 (09:13→16:31)
[2018-01-26] MEDS: NICOTINE 14 MG/24 HOUR PATCH TD SCH (09:13)
[2018-01-26 16:00] VITALS: BP 137/85
[2018-01-26] MEDS: LORazepam 2 MG TABLET PO PRN ×2 (16:31→21:06)
[2018-01-26] MEDS: HALOPERIDOL 5 MG TABLET PO PRN (16:31)
[2018-01-26 16:39] LABS: GLUCOMETER DEV NAME(LOC) BV3N5; GLUCOSE,POINT OF CARE 93 MG/DL (70-110)
[2018-01-26] MEDS: ZOLPIDEM TARTRATE 10 MG TABLET PO PRN (21:06)
[2018-01-26] MEDS: HALOPERIDOL 10 MG TABLET PO SCH (21:06)
[2018-01-27 03:24] VITALS: BP 121/87
[2018-01-27 06:09] LABS: GLUCOMETER DEV NAME(LOC) BV3N5; GLUCOSE,POINT OF CARE 74 MG/DL (70-110)
[2018-01-27] MEDS: MetFORMIN HCL 500 MG TABLET PO SCH ×2 (06:20→17:01)
[2018-01-27 08:03] VITALS: BP 138/81
[2018-01-27] MEDS: BENZTROPINE MESYLATE 1 MG TABLET PO SCH ×2 (08:46→17:01)
[2018-01-27] MEDS: DIVALPROEX SODIUM 500 MG DR TABLET PO SCH ×2 (08:47→17:01)
[2018-01-27] MEDS: FOLIC ACID 1 MG TABLET PO SCH ×2 (08:47→17:02)
[2018-01-27] MEDS: LACTULOSE 20 GM/30 ML SOLUTION UDCUP PO SCH (08:47)
[2018-01-27] MEDS: LISINOPRIL 10 MG TABLET PO SCH ×2 (08:47→17:01)
[2018-01-27] MEDS: THIAMINE HCL 100 MG TABLET PO SCH ×2 (08:47→17:01)
[2018-01-27] MEDS: NICOTINE 14 MG/24 HOUR PATCH TD SCH (08:52)
[2018-01-27 11:39] LABS: GLUCOMETER DEV NAME(LOC) BV3N5; GLUCOSE,POINT OF CARE 72 MG/DL (70-110)
[2018-01-27 16:00] VITALS: BP 140/73
[2018-01-27] MEDS: LORazepam 2 MG TABLET PO PRN ×2 (17:02→21:02)
[2018-01-27] MEDS: HALOPERIDOL 5 MG TABLET PO PRN (17:02)
[2018-01-27 17:18] LABS: GLUCOMETER DEV NAME(LOC) BV3N5; GLUCOSE,POINT OF CARE 120 MG/DL (70-110)
[2018-01-27] MEDS: HALOPERIDOL 10 MG TABLET PO SCH (21:02)
[2018-01-27] MEDS: ZOLPIDEM TARTRATE 10 MG TABLET PO PRN (21:02)
[2018-01-28 06:20] VITALS: BP 138/80
[2018-01-28 06:23] LABS: GLUCOMETER DEV NAME(LOC) BV3N5; GLUCOSE,POINT OF CARE 80 MG/DL (70-110)
[2018-01-28] MEDS: MetFORMIN HCL 500 MG TABLET PO SCH ×2 (06:37→16:15)
[2018-01-28 08:05] VITALS: BP 146/85
[2018-01-28] MEDS: LACTULOSE 20 GM/30 ML SOLUTION UDCUP PO SCH (08:47)
[2018-01-28] MEDS: THIAMINE HCL 100 MG TABLET PO SCH ×2 (08:48→16:15)
[2018-01-28] MEDS: BENZTROPINE MESYLATE 1 MG TABLET PO SCH ×2 (08:48→16:15)
[2018-01-28] MEDS: DIVALPROEX SODIUM 500 MG DR TABLET PO SCH ×2 (08:48→16:15)
[2018-01-28] MEDS: LISINOPRIL 10 MG TABLET PO SCH ×2 (08:48→16:15)
[2018-01-28] MEDS: FOLIC ACID 1 MG TABLET PO SCH ×2 (08:48→16:15)
[2018-01-28] MEDS: NICOTINE 14 MG/24 HOUR PATCH TD SCH (08:48)
[2018-01-28 16:00] VITALS: BP 129/76
[2018-01-28] MEDS: LORazepam 2 MG TABLET PO PRN (16:15)
[2018-01-28 17:29] LABS: GLUCOMETER DEV NAME(LOC) BV3N5; GLUCOSE,POINT OF CARE 87 MG/DL (70-110)
[2018-01-28] MEDS: HALOPERIDOL 10 MG TABLET PO SCH (20:23)
[2018-01-29] MEDS: MetFORMIN HCL 500 MG TABLET PO SCH ×2 (05:52→17:08)
[2018-01-29 06:33] VITALS: BP 133/65
[2018-01-29 06:54] LABS: GLUCOMETER DEV NAME(LOC) BV3N5; GLUCOSE,POINT OF CARE 69 MG/DL (70-110)
[2018-01-29 06:54] LABS: GLUCOMETER DEV NAME(LOC) BV3N5; GLUCOSE,POINT OF CARE 85 MG/DL (70-110)
[2018-01-29] MEDS: LORazepam 2 MG TABLET PO PRN ×2 (08:42→17:07)
[2018-01-29] MEDS: DIVALPROEX SODIUM 500 MG DR TABLET PO SCH ×2 (08:43→17:08)
[2018-01-29] MEDS: THIAMINE HCL 100 MG TABLET PO SCH ×2 (08:43→17:08)
[2018-01-29] MEDS: LISINOPRIL 10 MG TABLET PO SCH ×2 (08:43→17:08)
[2018-01-29] MEDS: FOLIC ACID 1 MG TABLET PO SCH ×2 (08:43→17:07)
[2018-01-29] MEDS: BENZTROPINE MESYLATE 1 MG TABLET PO SCH ×2 (08:43→17:08)
[2018-01-29] MEDS: LACTULOSE 20 GM/30 ML SOLUTION UDCUP PO SCH (08:44)
[2018-01-29] MEDS: NICOTINE 14 MG/24 HOUR PATCH TD SCH (08:44)
[2018-01-29 11:48] LABS: GLUCOMETER DEV NAME(LOC) BV3N5; GLUCOSE,POINT OF CARE 107 MG/DL (70-110)
[2018-01-29 16:00] VITALS: BP 137/83
[2018-01-29 19:34] LABS: GLUCOMETER DEV NAME(LOC) BV3N5; GLUCOSE,POINT OF CARE 102 MG/DL (70-110)
[2018-01-29] MEDS: HALOPERIDOL 10 MG TABLET PO SCH (21:05)
[2018-01-30] MEDS: MetFORMIN HCL 500 MG TABLET PO SCH ×2 (05:43→16:18)
[2018-01-30 05:51] VITALS: BP 122/72
[2018-01-30 06:19] LABS: GLUCOMETER DEV NAME(LOC) BV3N5; GLUCOSE,POINT OF CARE 75 MG/DL (70-110)
[2018-01-30 08:03] VITALS: BP 134/82
[2018-01-30] MEDS: NICOTINE 14 MG/24 HOUR PATCH TD SCH (08:36)
[2018-01-30] MEDS: BENZTROPINE MESYLATE 1 MG TABLET PO SCH ×2 (08:36→16:17)
[2018-01-30] MEDS: FOLIC ACID 1 MG TABLET PO SCH ×2 (08:36→16:18)
[2018-01-30] MEDS: THIAMINE HCL 100 MG TABLET PO SCH ×2 (08:36→16:17)
[2018-01-30] MEDS: LISINOPRIL 10 MG TABLET PO SCH ×2 (08:36→16:17)
[2018-01-30] MEDS: LORazepam 2 MG TABLET PO PRN ×3 (08:36→20:49)
[2018-01-30] MEDS: DIVALPROEX SODIUM 500 MG DR TABLET PO SCH ×2 (08:36→16:18)
[2018-01-30] MEDS: LACTULOSE 20 GM/30 ML SOLUTION UDCUP PO SCH (08:36)
[2018-01-30 16:00] VITALS: BP 142/83
[2018-01-30] MEDS: HALOPERIDOL 10 MG TABLET PO SCH (20:49)
[2018-01-30] MEDS: ZOLPIDEM TARTRATE 10 MG TABLET PO PRN (20:49)
[2018-01-31 00:37] VITALS: BP 140/81
[2018-01-31 05:37] LABS: HIV 1-2 SCREEN 4TH GEN W/RFLX Non Reactive (Non Reactive)
[2018-01-31] MEDS: MetFORMIN HCL 500 MG TABLET PO SCH ×2 (07:06→17:11)
[2018-01-31 08:03] VITALS: BP 128/70
[2018-01-31] MEDS: LISINOPRIL 10 MG TABLET PO SCH ×2 (08:15→17:12)
[2018-01-31] MEDS: THIAMINE HCL 100 MG TABLET PO SCH ×2 (08:15→17:11)
[2018-01-31] MEDS: BENZTROPINE MESYLATE 1 MG TABLET PO SCH ×2 (08:15→17:11)
[2018-01-31] MEDS: DIVALPROEX SODIUM 500 MG DR TABLET PO SCH ×2 (08:15→17:12)
[2018-01-31] MEDS: FOLIC ACID 1 MG TABLET PO SCH ×2 (08:15→17:11)
[2018-01-31] MEDS: LACTULOSE 20 GM/30 ML SOLUTION UDCUP PO SCH (08:16)
[2018-01-31] MEDS: NICOTINE 14 MG/24 HOUR PATCH TD SCH (08:16)
[2018-01-31 16:00] VITALS: BP 143/79
[2018-01-31 16:44] LABS: GLUCOMETER DEV NAME(LOC) BV3N5; GLUCOSE,POINT OF CARE 113 MG/DL (70-110)
[2018-01-31] MEDS: LORazepam 2 MG TABLET PO PRN (17:11)
[2018-01-31] MEDS: HALOPERIDOL 10 MG TABLET PO SCH (20:32)
[2018-01-31] MEDS: ZOLPIDEM TARTRATE 10 MG TABLET PO PRN (20:32)
[2018-02-01 05:52] VITALS: BP 139/78
[2018-02-01] MEDS: MetFORMIN HCL 500 MG TABLET PO SCH ×2 (06:57→16:34)
[2018-02-01 08:02] VITALS: BP 140/80
[2018-02-01] MEDS: NICOTINE 14 MG/24 HOUR PATCH TD SCH (09:00)
[2018-02-01] MEDS: LISINOPRIL 10 MG TABLET PO SCH ×2 (09:01→16:34)
[2018-02-01] MEDS: THIAMINE HCL 100 MG TABLET PO SCH ×2 (09:01→16:36)
[2018-02-01] MEDS: BENZTROPINE MESYLATE 1 MG TABLET PO SCH ×2 (09:01→16:34)
[2018-02-01] MEDS: LACTULOSE 20 GM/30 ML SOLUTION UDCUP PO SCH (09:01)
[2018-02-01] MEDS: DIVALPROEX SODIUM 500 MG DR TABLET PO SCH ×2 (09:02→16:34)
[2018-02-01] MEDS: FOLIC ACID 1 MG TABLET PO SCH ×2 (09:02→16:34)
[2018-02-01 16:00] VITALS: BP 144/88
[2018-02-01] MEDS: LORazepam 2 MG TABLET PO PRN ×2 (16:34→21:06)
[2018-02-01] MEDS: HALOPERIDOL 10 MG TABLET PO SCH (21:06)
[2018-02-01] MEDS: ZOLPIDEM TARTRATE 10 MG TABLET PO PRN (21:06)
[2018-02-02 06:19] LABS: GLUCOMETER DEV NAME(LOC) BV3N5; GLUCOSE,POINT OF CARE 86 MG/DL (70-110)
[2018-02-02 06:21] VITALS: BP 151/97
[2018-02-02] MEDS: MetFORMIN HCL 500 MG TABLET PO SCH ×2 (07:09→16:34)
[2018-02-02 08:07] VITALS: BP 135/76
[2018-02-02] MEDS: LACTULOSE 20 GM/30 ML SOLUTION UDCUP PO SCH (09:16)
[2018-02-02] MEDS: BENZTROPINE MESYLATE 1 MG TABLET PO SCH ×2 (09:16→16:34)
[2018-02-02] MEDS: THIAMINE HCL 100 MG TABLET PO SCH ×2 (09:17→16:34)
[2018-02-02] MEDS: LISINOPRIL 10 MG TABLET PO SCH ×2 (09:17→16:34)
[2018-02-02] MEDS: FOLIC ACID 1 MG TABLET PO SCH ×2 (09:17→16:34)
[2018-02-02] MEDS: DIVALPROEX SODIUM 500 MG DR TABLET PO SCH ×2 (09:17→16:34)
[2018-02-02 12:43] LABS: GLUCOMETER DEV NAME(LOC) BV3N5; GLUCOSE,POINT OF CARE 98 MG/DL (70-110)
[2018-02-02] MEDS: NICOTINE 14 MG/24 HOUR PATCH TD SCH (12:43)
[2018-02-02 16:00] VITALS: BP 136/82
[2018-02-02] MEDS: HALOPERIDOL 5 MG TABLET PO PRN (16:34)
[2018-02-02] MEDS: LORazepam 2 MG TABLET PO PRN ×2 (16:34→21:11)
[2018-02-02] MEDS: HALOPERIDOL 10 MG TABLET PO SCH (21:10)
[2018-02-02] MEDS: ZOLPIDEM TARTRATE 10 MG TABLET PO PRN (21:11)
[2018-02-03 01:45] VITALS: BP 126/83
[2018-02-03] MEDS: MetFORMIN HCL 500 MG TABLET PO SCH (06:23)
[2018-02-03 08:32] VITALS: BP 143/71
[2018-02-03] MEDS: NICOTINE 14 MG/24 HOUR PATCH TD SCH (09:00)
[2018-02-03] MEDS: FOLIC ACID 1 MG TABLET PO SCH (10:05)
[2018-02-03] MEDS: LACTULOSE 20 GM/30 ML SOLUTION UDCUP PO SCH (10:05)
[2018-02-03] MEDS: LISINOPRIL 10 MG TABLET PO SCH (10:05)
[2018-02-03] MEDS: THIAMINE HCL 100 MG TABLET PO SCH (10:05)
[2018-02-03] MEDS: BENZTROPINE MESYLATE 1 MG TABLET PO SCH (10:05)
[2018-02-03] MEDS: DIVALPROEX SODIUM 500 MG DR TABLET PO SCH (10:05)
[2018-02-03] MEDS: HALOPERIDOL 5 MG TABLET PO PRN (10:06)
[2018-02-03] MEDS: LORazepam 2 MG TABLET PO PRN (10:06)
[2018-02-03] MEDS ORDERED: DIVA-76 PO (13:19)
[2018-02-03] MEDS ORDERED: HALO10 PO (13:19)
[2018-02-03] MEDS ORDERED: FOLI1 PO (14:02)
[2018-02-03] MEDS ORDERED: THIA100T67 PO (14:03)
[2018-02-03] MEDS ORDERED: LACT30L PO (14:03)
== END 2018-02-03 14:30 | disposition home or self-care (01) | DRG 750 ==
LOC: EMS 18:25 → B2S 01-12 08:37 → B3A 01-23 10:17
PROVIDERS: ADMIT Psychiatry & Neurology Psychiatry; ATTEND Psychiatry & Neurology Psychiatry
DX: F20.0 Paranoid schizophrenia (principal); G93.40 Encephalopathy, unspecified; E11.40 Type 2 diabetes mellitus with diabetic neuropathy, unspecified; E11.649 Type 2 diabetes mellitus with hypoglycemia without coma; D72.819 Decreased white blood cell count, unspecified; G47.00 Insomnia, unspecified; I10 Essential (primary) hypertension; F17.210 Nicotine dependence, cigarettes, uncomplicated; Z86.73 Personal history of transient ischemic attack (TIA), and cerebral infarction without residual deficits; Z79.899 Other long term (current) drug therapy
CPT/HCPCS: 80074; 82652; 83036; 84443; 87081; 87389; 99285; G0480; J1200; J1630; J2060

== ENCOUNTER 2018-01-12 13:40 | Emergency (ER) | payer MEDICAID, OTHER ==
[~2018-01-12] VITALS: Ht 175.3 cm; Wt 81.8 kg
[2018-01-12 13:50] VITALS: BP 154/88
[2018-01-12] MEDS ORDERED: HYDROGEN PEROXIDE 118 ML SOLUTION TP ONE (14:00)
[2018-01-12] MEDS ORDERED: BACITRACIN 0.9 GM PACKET OINTMENT TP ONE (14:00)
== END 2018-01-12 14:36 | disposition home or self-care (01) ==
LOC: EMS 13:42
DX: S61.201A Unspecified open wound of left index finger without damage to nail, initial encounter (principal); E11.9 Type 2 diabetes mellitus without complications; I10 Essential (primary) hypertension; F17.210 Nicotine dependence, cigarettes, uncomplicated; Z59.0 Homelessness; X58.XXXA Exposure to other specified factors, initial encounter; Y93.89 Activity, other specified; Y92.89 Other specified places as the place of occurrence of the external cause; Y99.8 Other external cause status
CPT/HCPCS: 99283; 99406

== ENCOUNTER 2018-10-09 10:04 | Emergency (ER) | payer OTHER ==
[~2018-10-09] VITALS: Ht 172.7 cm; Wt 86.4 kg
[~2018-10-09 10:04] MED LIST changes: +DIVA-76 PO; +FOLI1 PO; -GLIM4 PO; +LACT30L PO; -OLAN10TA3 PO; +THIA100T67 PO
[2018-10-09 11:57] LABS: BASOPHILS % (AUTO) 1.4 % (0.0-2.0); EOSINOPHILS % (AUTO) 2.6 % (1.0-6.0); HEMATOCRIT 40.4 % (41-53); HEMOGLOBIN 13.2 g/dL (13.5-17.5); LYMPHOCYTES # (AUTO) 1.1 K/uL (1.0-4.8); LYMPHOCYTES % (AUTO) 39.3 % (22.0-44.0); MEAN CORPUSCULAR HEMOGLOBIN 30.6 pg (26.0-34.0); MEAN CORPUSCULAR HGB CONC 32.6 G/dL (31.0-37.0); MEAN CORPUSCULAR VOLUME 94 fL (80-100); MONOCYTES # (AUTO) 0.4 K/uL (0.1-1.0); MONOCYTES % (AUTO) 13.3 % (2.0-9.0); NEUTROPHILS # (AUTO) 1.3 K/uL (1.8-7.7); NEUTROPHILS % (AUTO) 43.4 % (40.0-70.0); PLATELET COUNT (AUTO) 191 K/uL (150-450); RED BLOOD CELL COUNT(AUTO) 4.31 MIL/uL (4.50-5.90); RED CELL DISTRIBUTION WIDTH 15.1 % (11.5-14.5)
[2018-10-09 12:10] LABS: ANION GAP 9 mmol/L (8-16); CALCIUM, TOTAL 8.7 mg/dL (8.8-10.5); CARBON DIOXIDE 28 mmol/L (22-29); CHLORIDE 106 mmol/L (98-107); CREATININE 0.66 mg/dL (0.60-1.30); GLOMERULAR FILTR. RATE CALC > 60 mL/min (>60); GLUCOSE,RANDOM 98 mg/dL (70-110); POTASSIUM 3.9 mmol/L (3.5-5.1); SODIUM SERUM 143 mmol/L (136-145); UREA NITROGEN, BLOOD 16 mg/dL (7-18)
[2018-10-09 12:15] LABS: ALANINE AMINOTRANSFERASE 27 U/L (12-78); ALBUMIN 3.3 g/dL (3.4-5.0); ALKALINE PHOSPHATASE 78 U/L (46-116); ASPARTATE AMINOTRANSFERASE 7 U/L (15-37); BILIRUBIN,TOTAL 0.4 mg/dL (0.1-1.0); TOTAL PROTEIN, SERUM 6.5 g/dL (6.4-8.2)
[2018-10-09 12:48] LABS: AMPHET/METH SCREEN,URINE NEGATIVE (NEGATIVE); BARBITURATE SCREEN, URINE NEGATIVE (NEGATIVE); BENZODIAZEPINES SCREEN,URINE NEGATIVE (NEGATIVE); CANNABINOID SCREEN,URINE NEGATIVE (NEGATIVE); COCAINE SCREEN,URINE NEGATIVE (NEGATIVE); METHADONE SCREEN, URINE NEGATIVE (NEGATIVE); OPIATE SCREEN,URINE NEGATIVE (NEGATIVE)
[2018-10-09 12:51] LABS: PHENCYCLIDINE SCREEN,URINE NEGATIVE (NEGATIVE)
[2018-10-09 13:12] VITALS: BP 146/84
== END 2018-10-09 13:17 | disposition home or self-care (01) ==
LOC: EMS 10:05
DX: Z13.89 Encounter for screening for other disorder (principal); E11.9 Type 2 diabetes mellitus without complications; I10 Essential (primary) hypertension; F20.9 Schizophrenia, unspecified; F31.9 Bipolar disorder, unspecified; F17.210 Nicotine dependence, cigarettes, uncomplicated; Z59.0 Homelessness
CPT/HCPCS: 36415; 80053; 80307; 82962; 85025; 99283; G0480

== ENCOUNTER 2019-03-02 04:09 | Emergency (ER) | payer OTHER ==
[~2019-03-02] VITALS: Ht 152.4 cm; Wt 72.7 kg
[2019-03-02 06:00] VITALS: BP 138/86
== END 2019-03-02 06:12 | disposition home or self-care (01) ==
LOC: EMS 04:12
DX: F31.9 Bipolar disorder, unspecified (principal); H92.03 Otalgia, bilateral; F10.10 Alcohol abuse, uncomplicated; F17.210 Nicotine dependence, cigarettes, uncomplicated; F20.9 Schizophrenia, unspecified; Z59.0 Homelessness
CPT/HCPCS: 99406

== ENCOUNTER 2019-06-30 15:29 | Inpatient (IN) | payer MEDICAID, OTHER ==
[~2019-06-30] VITALS: Ht 172.7 cm; Wt 76.2 kg
[2019-06-30 17:14] LABS: BASOPHILS % (AUTO) 0.7 % (0.0-2.0); EOSINOPHILS % (AUTO) 0.8 % (1.0-6.0); HEMATOCRIT 38.7 % (41-53); HEMOGLOBIN 12.8 g/dL (13.5-17.5); LYMPHOCYTES # (AUTO) 0.8 K/uL (1.0-4.8); LYMPHOCYTES % (AUTO) 19.7 % (22.0-44.0); MEAN CORPUSCULAR HEMOGLOBIN 31.1 pg (26.0-34.0); MEAN CORPUSCULAR HGB CONC 33.2 G/dL (31.0-37.0); MEAN CORPUSCULAR VOLUME 94 fL (80-100); MONOCYTES # (AUTO) 0.2 K/uL (0.1-1.0); MONOCYTES % (AUTO) 5.3 % (2.0-9.0); NEUTROPHILS % (AUTO) 73.5 % (40.0-70.0); PLATELET COUNT (AUTO) 190 K/uL (150-450); RED BLOOD CELL COUNT(AUTO) 4.13 MIL/uL (4.50-5.90); RED CELL DISTRIBUTION WIDTH 14.6 % (11.5-14.5)
[2019-06-30 17:34] LABS: ANION GAP 6 mmol/L (8-16); CALCIUM, TOTAL 8.5 mg/dL (8.8-10.5); CARBON DIOXIDE 28 mmol/L (22-29); CHLORIDE 106 mmol/L (98-107); CREATININE 0.86 mg/dL (0.60-1.30); GLOMERULAR FILTR. RATE CALC > 60 mL/min (>60); GLUCOSE,RANDOM 83 mg/dL (70-110); POTASSIUM 3.6 mmol/L (3.5-5.1); SODIUM SERUM 140 mmol/L (136-145); UREA NITROGEN, BLOOD 20 mg/dL (7-18)
[2019-06-30 17:39] LABS: ALANINE AMINOTRANSFERASE 25 U/L (12-78); ALBUMIN 3.6 g/dL (3.4-5.0); ALKALINE PHOSPHATASE 97 U/L (46-116); ASPARTATE AMINOTRANSFERASE 6 U/L (15-37); BILIRUBIN,TOTAL 0.3 mg/dL (0.1-1.0); TOTAL PROTEIN, SERUM 6.7 g/dL (6.4-8.2)
[2019-06-30 22:06] VITALS: BP 145/75
[2019-07-01 08:10] VITALS: BP 157/85
[2019-07-01 08:24] LABS: CHOL/HDL RATIO 2.1 (4.2-7.3)
[2019-07-01] MEDS: HALOPERIDOL 5 MG TABLET PO PRN ×2 (08:24→17:44)
[2019-07-01] MEDS: LORazepam 2 MG TABLET PO PRN ×2 (08:24→17:44)
[2019-07-01] MEDS ORDERED: HALOPERIDOL 5 MG TABLET PO ONE (09:00)
[2019-07-01 16:30] VITALS: BP 136/63
[2019-07-01] MEDS: BENZTROPINE MESYLATE 1 MG TABLET PO SCH (17:44)
[2019-07-01] MEDS ORDERED: DOCUSATE SODIUM 100 MG CAPSULE PO PRN (18:15)
[2019-07-01] MEDS ORDERED: BENZOCAINE/MENTHOL LOZENGE MM PRN (18:15)
[2019-07-01] MEDS ORDERED: DEXTROSE 50%-WATER 25 GM/50 ML SYRINGE IVP PRN (18:15)
[2019-07-01] MEDS ORDERED: MAG HYDROX/AL HYDROX/SIMETH ES 30 ML SUSPENSION UDCUP PO PRN (18:15)
[2019-07-01] MEDS ORDERED: BACITRACIN 28.4 GM OINTMENT TP PRN (18:15)
[2019-07-01] MEDS ORDERED: CloNIDine HCL 0.1 MG TABLET PO PRN (18:15)
[2019-07-01] MEDS ORDERED: LOPERAMIDE HCL 2 MG CAPSULE PO PRN (18:15)
[2019-07-01] MEDS ORDERED: MAGNESIUM HYDROXIDE SUSPENSION 30 ML UDCUP PO PRN (18:15)
[2019-07-01] MEDS ORDERED: ALBUTEROL SULFATE HFA 90 MCG/PUFF 8 GM INHALER IH PRN (18:15)
[2019-07-01] MEDS ORDERED: ACETAMINOPHEN 325 MG TABLET PO PRN (18:15)
[2019-07-01] MEDS ORDERED: PETROLATUM,WHITE 28 GM JELLY TP PRN (18:15)
[2019-07-01] MEDS ORDERED: IBUPROFEN 600 MG TABLET PO PRN (18:15)
[2019-07-01] MEDS ORDERED: ONDANSETRON HCL 4 MG TABLET PO PRN (18:15)
[2019-07-01] MEDS: HALOPERIDOL 10 MG TABLET PO SCH (21:00)
[2019-07-01 21:43] LABS: GLUCOMETER DEV NAME(LOC) 3E.C; GLUCOSE,POINT OF CARE 80 MG/DL (70-110)
[2019-07-02] MEDS: HALOPERIDOL 5 MG TABLET PO PRN ×2 (02:57→09:14)
[2019-07-02] MEDS: ZOLPIDEM TARTRATE 10 MG TABLET PO PRN ×2 (02:57→22:14)
[2019-07-02 06:21] LABS: GLUCOMETER DEV NAME(LOC) 3E.C; GLUCOSE,POINT OF CARE 74 MG/DL (70-110)
[2019-07-02] MEDS: MetFORMIN HCL 500 MG TABLET PO SCH ×2 (07:00→16:32)
[2019-07-02] MEDS: INSULIN LISPRO 100 UNITS/ML SQ PRN (07:02)
[2019-07-02 08:17] VITALS: BP 127/74
[2019-07-02] MEDS: LISINOPRIL 10 MG TABLET PO SCH (09:12)
[2019-07-02] MEDS: OMEPRAZOLE 20 MG CAPSULE PO PRN (09:12)
[2019-07-02] MEDS: BENZTROPINE MESYLATE 1 MG TABLET PO SCH ×2 (09:12→16:32)
[2019-07-02] MEDS: DIVALPROEX SODIUM 500 MG DR TABLET PO SCH (09:12)
[2019-07-02] MEDS: LORazepam 2 MG TABLET PO PRN ×2 (09:14→18:43)
[2019-07-02 11:55] LABS: GLUCOMETER DEV NAME(LOC) 3E.C; GLUCOSE,POINT OF CARE 78 MG/DL (70-110)
[2019-07-02 16:33] VITALS: BP 122/64
[2019-07-02 16:39] LABS: GLUCOMETER DEV NAME(LOC) 3E.C; GLUCOSE,POINT OF CARE 74 MG/DL (70-110)
[2019-07-02] MEDS: HALOPERIDOL 10 MG TABLET PO SCH (20:02)
[2019-07-02 20:42] LABS: GLUCOMETER DEV NAME(LOC) 3E.C; GLUCOSE,POINT OF CARE 78 MG/DL (70-110)
[2019-07-03 06:20] LABS: GLUCOMETER DEV NAME(LOC) 3E.C; GLUCOSE,POINT OF CARE 78 MG/DL (70-110)
[2019-07-03] MEDS: MetFORMIN HCL 500 MG TABLET PO SCH ×2 (07:14→17:03)
[2019-07-03 08:42] VITALS: BP 137/81
[2019-07-03] MEDS: DIVALPROEX SODIUM 500 MG DR TABLET PO SCH (08:55)
[2019-07-03] MEDS: LISINOPRIL 10 MG TABLET PO SCH (08:55)
[2019-07-03] MEDS: BENZTROPINE MESYLATE 1 MG TABLET PO SCH ×2 (08:55→17:03)
[2019-07-03 15:16] LABS: GLUCOMETER DEV NAME(LOC) 3E.C; GLUCOSE,POINT OF CARE 78 MG/DL (70-110)
[2019-07-03 17:18] VITALS: BP 134/72
[2019-07-03 17:55] LABS: GLUCOMETER DEV NAME(LOC) 3E.C; GLUCOSE,POINT OF CARE 75 MG/DL (70-110)
[2019-07-03] MEDS: HALOPERIDOL 10 MG TABLET PO SCH (20:17)
[2019-07-03 20:40] LABS: GLUCOMETER DEV NAME(LOC) 3E.C; GLUCOSE,POINT OF CARE 126 MG/DL (70-110)
[2019-07-04] MEDS: MetFORMIN HCL 500 MG TABLET PO SCH ×2 (07:04→17:44)
[2019-07-04 08:00] VITALS: BP 136/78
[2019-07-04] MEDS: LISINOPRIL 10 MG TABLET PO SCH (08:34)
[2019-07-04] MEDS: DIVALPROEX SODIUM 500 MG DR TABLET PO SCH (08:34)
[2019-07-04] MEDS: HALOPERIDOL 5 MG TABLET PO PRN (08:34)
[2019-07-04] MEDS: BENZTROPINE MESYLATE 1 MG TABLET PO SCH ×2 (08:34→16:02)
[2019-07-04 11:50] LABS: GLUCOMETER DEV NAME(LOC) 3E.C; GLUCOSE,POINT OF CARE 78 MG/DL (70-110)
[2019-07-04 16:14] VITALS: BP 139/82
[2019-07-04 16:14] LABS: GLUCOMETER DEV NAME(LOC) 3E.C; GLUCOSE,POINT OF CARE 107 MG/DL (70-110)
[2019-07-04] MEDS: LORazepam 2 MG TABLET PO PRN (19:00)
[2019-07-04] MEDS: HALOPERIDOL 10 MG TABLET PO SCH (20:11)
[2019-07-04 20:26] LABS: GLUCOMETER DEV NAME(LOC) 3E.C; GLUCOSE,POINT OF CARE 97 MG/DL (70-110)
[2019-07-05 06:25] LABS: GLUCOMETER DEV NAME(LOC) 3E.C; GLUCOSE,POINT OF CARE 76 MG/DL (70-110)
[2019-07-05] MEDS: MetFORMIN HCL 500 MG TABLET PO SCH ×2 (07:10→16:40)
[2019-07-05 08:25] VITALS: BP 126/66
[2019-07-05] MEDS: DIVALPROEX SODIUM 500 MG DR TABLET PO SCH (08:28)
[2019-07-05] MEDS: BENZTROPINE MESYLATE 1 MG TABLET PO SCH ×2 (08:28→16:40)
[2019-07-05] MEDS: LISINOPRIL 10 MG TABLET PO SCH (08:28)
[2019-07-05 11:46] LABS: GLUCOMETER DEV NAME(LOC) 3E.C; GLUCOSE,POINT OF CARE 105 MG/DL (70-110)
[2019-07-05 17:12] LABS: GLUCOMETER DEV NAME(LOC) 3E.C; GLUCOSE,POINT OF CARE 85 MG/DL (70-110)
[2019-07-05 17:21] VITALS: BP 139/62
[2019-07-05] MEDS: HALOPERIDOL 10 MG TABLET PO SCH (20:24)
[2019-07-05 21:10] LABS: GLUCOMETER DEV NAME(LOC) 3E.C; GLUCOSE,POINT OF CARE 94 MG/DL (70-110)
[2019-07-06 06:22] LABS: GLUCOMETER DEV NAME(LOC) 3E.C; GLUCOSE,POINT OF CARE 81 MG/DL (70-110)
[2019-07-06] MEDS: MetFORMIN HCL 500 MG TABLET PO SCH ×2 (07:00→17:02)
[2019-07-06] MEDS: INSULIN LISPRO 100 UNITS/ML SQ PRN (07:01)
[2019-07-06 08:00] VITALS: BP 130/56
[2019-07-06] MEDS: DIVALPROEX SODIUM 500 MG DR TABLET PO SCH (09:32)
[2019-07-06] MEDS: BENZTROPINE MESYLATE 1 MG TABLET PO SCH ×2 (09:32→17:02)
[2019-07-06] MEDS: LISINOPRIL 10 MG TABLET PO SCH (09:32)
[2019-07-06 11:48] LABS: GLUCOMETER DEV NAME(LOC) 3E.C; GLUCOSE,POINT OF CARE 66 MG/DL (70-110)
[2019-07-06 12:54] LABS: GLUCOMETER DEV NAME(LOC) 3E.C; GLUCOSE,POINT OF CARE 123 MG/DL (70-110)
[2019-07-06] MEDS: LORazepam 2 MG TABLET PO PRN (17:02)
[2019-07-06 17:22] VITALS: BP 125/62
[2019-07-06 18:04] LABS: GLUCOMETER DEV NAME(LOC) 3E.C; GLUCOSE,POINT OF CARE 80 MG/DL (70-110)
[2019-07-06] MEDS: HALOPERIDOL 10 MG TABLET PO SCH (20:19)
[2019-07-06 21:50] LABS: GLUCOMETER DEV NAME(LOC) 3E.C; GLUCOSE,POINT OF CARE 78 MG/DL (70-110)
[2019-07-07 06:06] LABS: GLUCOMETER DEV NAME(LOC) 3E.C; GLUCOSE,POINT OF CARE 97 MG/DL (70-110)
[2019-07-07] MEDS: MetFORMIN HCL 500 MG TABLET PO SCH ×2 (06:59→16:37)
[2019-07-07] MEDS: INSULIN LISPRO 100 UNITS/ML SQ PRN (07:07)
[2019-07-07 08:30] VITALS: BP 148/98
[2019-07-07] MEDS: BENZTROPINE MESYLATE 1 MG TABLET PO SCH ×2 (09:13→16:37)
[2019-07-07] MEDS: LISINOPRIL 10 MG TABLET PO SCH (09:14)
[2019-07-07] MEDS: DIVALPROEX SODIUM 500 MG DR TABLET PO SCH (09:14)
[2019-07-07 11:59] LABS: GLUCOMETER DEV NAME(LOC) 3E.C; GLUCOSE,POINT OF CARE 94 MG/DL (70-110)
[2019-07-07 16:39] LABS: GLUCOMETER DEV NAME(LOC) 3E.C; GLUCOSE,POINT OF CARE 120 MG/DL (70-110)
[2019-07-07 20:09] VITALS: BP 129/65
[2019-07-07] MEDS: HALOPERIDOL 10 MG TABLET PO SCH (20:51)
[2019-07-07 21:11] LABS: GLUCOMETER DEV NAME(LOC) 3E.C; GLUCOSE,POINT OF CARE 104 MG/DL (70-110)
[2019-07-07] MEDS: LORazepam 2 MG TABLET PO PRN (23:39)
[2019-07-07] MEDS: ZOLPIDEM TARTRATE 10 MG TABLET PO PRN (23:40)
[2019-07-08] MEDS: HALOPERIDOL 5 MG TABLET PO PRN (01:31)
[2019-07-08 06:46] LABS: GLUCOMETER DEV NAME(LOC) 3E.C; GLUCOSE,POINT OF CARE 82 MG/DL (70-110)
[2019-07-08] MEDS: MetFORMIN HCL 500 MG TABLET PO SCH ×2 (06:48→17:41)
[2019-07-08] MEDS: BENZTROPINE MESYLATE 1 MG TABLET PO SCH ×2 (09:31→16:29)
[2019-07-08] MEDS: LISINOPRIL 10 MG TABLET PO SCH (09:31)
[2019-07-08] MEDS: DIVALPROEX SODIUM 500 MG DR TABLET PO SCH (09:31)
[2019-07-08 09:45] VITALS: BP 132/75
[2019-07-08 11:57] LABS: GLUCOMETER DEV NAME(LOC) 3E.C; GLUCOSE,POINT OF CARE 75 MG/DL (70-110)
[2019-07-08 16:00] VITALS: BP 129/77
[2019-07-08 17:33] LABS: GLUCOMETER DEV NAME(LOC) 3E.C; GLUCOSE,POINT OF CARE 126 MG/DL (70-110)
[2019-07-08] MEDS: LORazepam 2 MG TABLET PO PRN (17:38)
[2019-07-08] MEDS: INSULIN LISPRO 100 UNITS/ML SQ PRN ×2 (17:42→21:14)
[2019-07-08] MEDS: HALOPERIDOL 10 MG TABLET PO SCH (21:12)
[2019-07-08 21:39] LABS: GLUCOMETER DEV NAME(LOC) 3E.C; GLUCOSE,POINT OF CARE 77 MG/DL (70-110)
[2019-07-09] MEDS: MetFORMIN HCL 500 MG TABLET PO SCH ×2 (07:19→17:27)
[2019-07-09 07:29] LABS: GLUCOMETER DEV NAME(LOC) 3E.C; GLUCOSE,POINT OF CARE 90 MG/DL (70-110)
[2019-07-09 09:00] VITALS: BP 125/64
[2019-07-09] MEDS: BENZTROPINE MESYLATE 1 MG TABLET PO SCH ×2 (09:09→17:27)
[2019-07-09] MEDS: DIVALPROEX SODIUM 500 MG DR TABLET PO SCH (09:09)
[2019-07-09] MEDS: LISINOPRIL 10 MG TABLET PO SCH (09:09)
[2019-07-09] MEDS: LORazepam 2 MG TABLET PO PRN (09:20)
[2019-07-09] MEDS: HALOPERIDOL 5 MG TABLET PO PRN (09:20)
[2019-07-09 11:48] LABS: GLUCOMETER DEV NAME(LOC) 3E.C; GLUCOSE,POINT OF CARE 75 MG/DL (70-110)
[2019-07-09 16:33] VITALS: BP 131/71
[2019-07-09 17:06] LABS: GLUCOMETER DEV NAME(LOC) 3E.C; GLUCOSE,POINT OF CARE 86 MG/DL (70-110)
[2019-07-09 20:52] LABS: GLUCOMETER DEV NAME(LOC) 3E.C; GLUCOSE,POINT OF CARE 79 MG/DL (70-110)
[2019-07-09] MEDS: HALOPERIDOL 10 MG TABLET PO SCH (21:13)
[2019-07-09] MEDS: ZOLPIDEM TARTRATE 10 MG TABLET PO PRN (23:03)
[2019-07-10 06:48] LABS: GLUCOMETER DEV NAME(LOC) 3E.C; GLUCOSE,POINT OF CARE 83 MG/DL (70-110)
[2019-07-10] MEDS: MetFORMIN HCL 500 MG TABLET PO SCH ×2 (07:00→16:45)
[2019-07-10] MEDS: DIVALPROEX SODIUM 500 MG DR TABLET PO SCH (08:55)
[2019-07-10] MEDS: LISINOPRIL 10 MG TABLET PO SCH (08:55)
[2019-07-10] MEDS: BENZTROPINE MESYLATE 1 MG TABLET PO SCH ×2 (08:55→16:45)
[2019-07-10] MEDS: HALOPERIDOL 10 MG TABLET PO SCH ×2 (10:48→21:20)
[2019-07-10 11:29] LABS: GLUCOMETER DEV NAME(LOC) 3E.C; GLUCOSE,POINT OF CARE 85 MG/DL (70-110)
[2019-07-10 16:51] VITALS: BP 127/78
[2019-07-10 16:54] LABS: GLUCOMETER DEV NAME(LOC) 3E.C; GLUCOSE,POINT OF CARE 89 MG/DL (70-110)
[2019-07-10 21:31] LABS: GLUCOMETER DEV NAME(LOC) 3E.C; GLUCOSE,POINT OF CARE 92 MG/DL (70-110)
[2019-07-11] MEDS: MetFORMIN HCL 500 MG TABLET PO SCH ×2 (07:01→16:57)
[2019-07-11 08:25] VITALS: BP 137/86
[2019-07-11] MEDS: HALOPERIDOL 10 MG TABLET PO SCH ×2 (08:40→20:09)
[2019-07-11] MEDS: BENZTROPINE MESYLATE 1 MG TABLET PO SCH ×2 (08:40→15:53)
[2019-07-11] MEDS: DIVALPROEX SODIUM 500 MG DR TABLET PO SCH (08:40)
[2019-07-11] MEDS: LISINOPRIL 10 MG TABLET PO SCH (08:40)
[2019-07-11 11:21] LABS: GLUCOMETER DEV NAME(LOC) 3E.C; GLUCOSE,POINT OF CARE 78 MG/DL (70-110)
[2019-07-11] MEDS: HALOPERIDOL 5 MG TABLET PO PRN (15:53)
[2019-07-11] MEDS: LORazepam 2 MG TABLET PO PRN ×2 (15:53→20:09)
[2019-07-11 16:10] LABS: GLUCOMETER DEV NAME(LOC) 3E.C; GLUCOSE,POINT OF CARE 143 MG/DL (70-110)
[2019-07-11] MEDS: INSULIN LISPRO 100 UNITS/ML SQ PRN (16:56)
[2019-07-11 17:19] VITALS: BP 116/65
[2019-07-11] MEDS: ZOLPIDEM TARTRATE 10 MG TABLET PO PRN (21:06)
[2019-07-12 06:38] LABS: GLUCOMETER DEV NAME(LOC) 3E.C; GLUCOSE,POINT OF CARE 81 MG/DL (70-110)
[2019-07-12] MEDS: MetFORMIN HCL 500 MG TABLET PO SCH ×2 (06:50→16:57)
[2019-07-12 08:41] VITALS: BP 130/66
[2019-07-12] MEDS: DIVALPROEX SODIUM 500 MG DR TABLET PO SCH (10:14)
[2019-07-12] MEDS: HALOPERIDOL 10 MG TABLET PO SCH ×2 (10:15→21:33)
[2019-07-12] MEDS: BENZTROPINE MESYLATE 1 MG TABLET PO SCH ×2 (10:15→16:57)
[2019-07-12] MEDS: LISINOPRIL 10 MG TABLET PO SCH (10:15)
[2019-07-12 16:06] VITALS: BP 130/76
[2019-07-12 17:00] LABS: GLUCOMETER DEV NAME(LOC) 3E.C; GLUCOSE,POINT OF CARE 88 MG/DL (70-110)
[2019-07-12 21:43] LABS: GLUCOMETER DEV NAME(LOC) 3E.C; GLUCOSE,POINT OF CARE 86 MG/DL (70-110)
[2019-07-13] MEDS: MetFORMIN HCL 500 MG TABLET PO SCH ×2 (07:08→17:43)
[2019-07-13 07:16] LABS: GLUCOMETER DEV NAME(LOC) 3E.C; GLUCOSE,POINT OF CARE 66 MG/DL (70-110)
[2019-07-13 07:16] LABS: GLUCOMETER DEV NAME(LOC) 3E.C; GLUCOSE,POINT OF CARE 88 MG/DL (70-110)
[2019-07-13] MEDS: BENZTROPINE MESYLATE 1 MG TABLET PO SCH ×2 (09:25→16:18)
[2019-07-13] MEDS: DIVALPROEX SODIUM 500 MG DR TABLET PO SCH (09:26)
[2019-07-13] MEDS: LISINOPRIL 10 MG TABLET PO SCH (09:26)
[2019-07-13] MEDS: HALOPERIDOL 10 MG TABLET PO SCH ×2 (09:28→20:02)
[2019-07-13 10:22] VITALS: BP 144/85
[2019-07-13] MEDS: HALOPERIDOL 5 MG TABLET PO PRN (15:41)
[2019-07-13] MEDS: LORazepam 2 MG TABLET PO PRN ×2 (15:41→20:02)
[2019-07-13 16:58] LABS: GLUCOMETER DEV NAME(LOC) 3E.C; GLUCOSE,POINT OF CARE 102 MG/DL (70-110)
[2019-07-13 18:05] VITALS: BP 129/66
[2019-07-13] MEDS: ZOLPIDEM TARTRATE 10 MG TABLET PO PRN (21:01)
[2019-07-14 06:49] LABS: GLUCOMETER DEV NAME(LOC) 3E.C; GLUCOSE,POINT OF CARE 70 MG/DL (70-110)
[2019-07-14] MEDS: MetFORMIN HCL 500 MG TABLET PO SCH ×2 (06:49→17:09)
[2019-07-14 08:15] VITALS: BP 127/88
[2019-07-14] MEDS: BENZTROPINE MESYLATE 1 MG TABLET PO SCH ×2 (08:33→17:09)
[2019-07-14] MEDS: HALOPERIDOL 10 MG TABLET PO SCH ×2 (08:34→20:35)
[2019-07-14] MEDS: DIVALPROEX SODIUM 500 MG DR TABLET PO SCH ×2 (08:34→20:34)
[2019-07-14] MEDS: LISINOPRIL 10 MG TABLET PO SCH (08:34)
[2019-07-14 16:24] VITALS: BP 126/76
[2019-07-14 17:05] LABS: GLUCOMETER DEV NAME(LOC) 3E.C; GLUCOSE,POINT OF CARE 86 MG/DL (70-110)
[2019-07-15 06:53] LABS: GLUCOMETER DEV NAME(LOC) 3E.C; GLUCOSE,POINT OF CARE 114 MG/DL (70-110)
[2019-07-15 06:53] LABS: GLUCOMETER DEV NAME(LOC) 3E.C; GLUCOSE,POINT OF CARE 67 MG/DL (70-110)
[2019-07-15] MEDS: MetFORMIN HCL 500 MG TABLET PO SCH ×2 (07:01→16:42)
[2019-07-15 08:01] VITALS: BP 124/76
[2019-07-15] MEDS: LISINOPRIL 10 MG TABLET PO SCH (08:03)
[2019-07-15] MEDS: HALOPERIDOL 10 MG TABLET PO SCH ×2 (08:03→20:10)
[2019-07-15] MEDS: DIVALPROEX SODIUM 500 MG DR TABLET PO SCH ×2 (08:03→20:11)
[2019-07-15] MEDS: BENZTROPINE MESYLATE 1 MG TABLET PO SCH ×2 (08:03→16:42)
[2019-07-15 17:09] LABS: GLUCOMETER DEV NAME(LOC) 3E.C; GLUCOSE,POINT OF CARE 72 MG/DL (70-110)
[2019-07-15 17:11] VITALS: BP 131/92
[2019-07-16] MEDS: MetFORMIN HCL 500 MG TABLET PO SCH ×2 (06:28→17:35)
[2019-07-16 07:50] LABS: GLUCOMETER DEV NAME(LOC) 3E.C; GLUCOSE,POINT OF CARE 70 MG/DL (70-110)
[2019-07-16] MEDS: DIVALPROEX SODIUM 500 MG DR TABLET PO SCH ×2 (07:50→20:08)
[2019-07-16] MEDS: LISINOPRIL 10 MG TABLET PO SCH (07:50)
[2019-07-16] MEDS: BENZTROPINE MESYLATE 1 MG TABLET PO SCH ×2 (07:50→15:55)
[2019-07-16] MEDS: HALOPERIDOL 10 MG TABLET PO SCH ×2 (07:50→20:08)
[2019-07-16] MEDS: OMEPRAZOLE 20 MG CAPSULE PO PRN (07:50)
[2019-07-16] MEDS: LORazepam 2 MG TABLET PO PRN ×3 (09:01→20:11)
[2019-07-16 09:42] VITALS: BP 129/74
[2019-07-16] MEDS: HALOPERIDOL 5 MG TABLET PO PRN (15:50)
[2019-07-16 16:29] LABS: GLUCOMETER DEV NAME(LOC) 3E.C; GLUCOSE,POINT OF CARE 90 MG/DL (70-110)
[2019-07-16 16:56] VITALS: BP 121/80
[2019-07-17] MEDS: INSULIN LISPRO 100 UNITS/ML SQ PRN (06:38)
[2019-07-17 06:48] LABS: GLUCOMETER DEV NAME(LOC) 3E.C; GLUCOSE,POINT OF CARE 91 MG/DL (70-110)
[2019-07-17] MEDS: MetFORMIN HCL 500 MG TABLET PO SCH ×2 (06:51→16:46)
[2019-07-17 08:36] VITALS: BP 134/82
[2019-07-17] MEDS: LORazepam 2 MG TABLET PO PRN (09:06)
[2019-07-17] MEDS: LISINOPRIL 10 MG TABLET PO SCH (09:06)
[2019-07-17] MEDS: BENZTROPINE MESYLATE 1 MG TABLET PO SCH ×2 (09:06→16:46)
[2019-07-17] MEDS: DIVALPROEX SODIUM 500 MG DR TABLET PO SCH ×2 (09:06→20:14)
[2019-07-17] MEDS: HALOPERIDOL 10 MG TABLET PO SCH ×2 (09:07→20:14)
[2019-07-17 18:52] VITALS: BP 130/60
[2019-07-18 06:37] LABS: GLUCOMETER DEV NAME(LOC) 3E.C; GLUCOSE,POINT OF CARE 93 MG/DL (70-110)
[2019-07-18] MEDS: MetFORMIN HCL 500 MG TABLET PO SCH ×2 (06:41→16:36)
[2019-07-18 06:42] LABS: GLUCOMETER DEV NAME(LOC) 3E.C; GLUCOSE,POINT OF CARE 79 MG/DL (70-110)
[2019-07-18] MEDS: DIVALPROEX SODIUM 500 MG DR TABLET PO SCH ×2 (08:40→20:01)
[2019-07-18] MEDS: HALOPERIDOL 10 MG TABLET PO SCH ×2 (08:41→20:02)
[2019-07-18] MEDS: BENZTROPINE MESYLATE 1 MG TABLET PO SCH ×2 (08:41→16:36)
[2019-07-18] MEDS: LISINOPRIL 10 MG TABLET PO SCH (08:41)
[2019-07-18 09:00] VITALS: BP 130/64
[2019-07-18 16:10] VITALS: BP 131/81
[2019-07-18 16:43] LABS: GLUCOMETER DEV NAME(LOC) 3E.C; GLUCOSE,POINT OF CARE 109 MG/DL (70-110)
[2019-07-19 06:20] LABS: GLUCOMETER DEV NAME(LOC) 3E.C; GLUCOSE,POINT OF CARE 98 MG/DL (70-110)
[2019-07-19] MEDS: MetFORMIN HCL 500 MG TABLET PO SCH ×2 (07:02→16:38)
[2019-07-19] MEDS: INSULIN LISPRO 100 UNITS/ML SQ PRN (07:15)
[2019-07-19] MEDS: DIVALPROEX SODIUM 500 MG DR TABLET PO SCH (09:38)
[2019-07-19] MEDS: HALOPERIDOL 10 MG TABLET PO SCH ×2 (09:38→20:34)
[2019-07-19] MEDS: OMEPRAZOLE 20 MG CAPSULE PO PRN (09:38)
[2019-07-19] MEDS: BENZTROPINE MESYLATE 1 MG TABLET PO SCH ×2 (09:38→16:37)
[2019-07-19] MEDS: LISINOPRIL 10 MG TABLET PO SCH (09:38)
[2019-07-19] MEDS: LORazepam 2 MG TABLET PO PRN (15:11)
[2019-07-19 16:45] VITALS: BP 129/75
[2019-07-19 16:47] LABS: GLUCOMETER DEV NAME(LOC) 3E.C; GLUCOSE,POINT OF CARE 96 MG/DL (70-110)
[2019-07-19] MEDS: VALPROIC ACID 250 MG/5 ML SYRUP UDCUP PO SCH (20:36)
[2019-07-20 06:28] LABS: GLUCOMETER DEV NAME(LOC) 3E.C; GLUCOSE,POINT OF CARE 61 MG/DL (70-110)
[2019-07-20 06:56] LABS: GLUCOMETER DEV NAME(LOC) 3E.C; GLUCOSE,POINT OF CARE 88 MG/DL (70-110)
[2019-07-20] MEDS: MetFORMIN HCL 500 MG TABLET PO SCH ×2 (07:08→16:30)
[2019-07-20] MEDS: OMEPRAZOLE 20 MG CAPSULE PO PRN (08:37)
[2019-07-20] MEDS: VALPROIC ACID 250 MG/5 ML SYRUP UDCUP PO SCH ×2 (08:37→20:19)
[2019-07-20] MEDS: BENZTROPINE MESYLATE 1 MG TABLET PO SCH ×2 (08:37→16:30)
[2019-07-20] MEDS: LISINOPRIL 10 MG TABLET PO SCH (08:37)
[2019-07-20] MEDS: HALOPERIDOL 10 MG TABLET PO SCH ×2 (08:37→20:19)
[2019-07-20 12:58] VITALS: BP 134/65
[2019-07-20 16:31] LABS: GLUCOMETER DEV NAME(LOC) 3E.C; GLUCOSE,POINT OF CARE 79 MG/DL (70-110)
[2019-07-20 17:11] VITALS: BP 130/67
[2019-07-21 06:26] LABS: GLUCOMETER DEV NAME(LOC) 3E.C; GLUCOSE,POINT OF CARE 65 MG/DL (70-110)
[2019-07-21 07:01] LABS: GLUCOMETER DEV NAME(LOC) 3E.C; GLUCOSE,POINT OF CARE 88 MG/DL (70-110)
[2019-07-21] MEDS: MetFORMIN HCL 500 MG TABLET PO SCH (07:03)
[2019-07-21 08:15] VITALS: BP 146/79
[2019-07-21] MEDS: HALOPERIDOL 10 MG TABLET PO SCH ×2 (08:28→20:25)
[2019-07-21] MEDS: BENZTROPINE MESYLATE 1 MG TABLET PO SCH ×2 (08:28→16:46)
[2019-07-21] MEDS: LISINOPRIL 10 MG TABLET PO SCH (08:28)
[2019-07-21] MEDS: VALPROIC ACID 250 MG/5 ML SYRUP UDCUP PO SCH ×2 (08:31→20:26)
[2019-07-21 16:24] VITALS: BP 132/74
[2019-07-21 18:27] LABS: GLUCOMETER DEV NAME(LOC) 3E.C; GLUCOSE,POINT OF CARE 109 MG/DL (70-110)
[2019-07-22 07:22] LABS: GLUCOMETER DEV NAME(LOC) 3EX.; GLUCOSE,POINT OF CARE 70 MG/DL (70-110)
[2019-07-22 08:31] VITALS: BP 131/79
[2019-07-22] MEDS: LISINOPRIL 10 MG TABLET PO SCH (09:20)
[2019-07-22] MEDS: VALPROIC ACID 250 MG/5 ML SYRUP UDCUP PO SCH ×2 (09:20→20:19)
[2019-07-22] MEDS: BENZTROPINE MESYLATE 1 MG TABLET PO SCH ×2 (09:20→16:03)
[2019-07-22] MEDS: HALOPERIDOL 10 MG TABLET PO SCH ×2 (09:20→20:19)
[2019-07-22 16:49] LABS: GLUCOMETER DEV NAME(LOC) 3E.C; GLUCOSE,POINT OF CARE 85 MG/DL (70-110)
[2019-07-22 18:02] VITALS: BP 132/66
[2019-07-23 06:55] LABS: GLUCOMETER DEV NAME(LOC) 3E.C; GLUCOSE,POINT OF CARE 72 MG/DL (70-110)
[2019-07-23 08:00] VITALS: BP 128/82
[2019-07-23] MEDS: BENZTROPINE MESYLATE 1 MG TABLET PO SCH ×2 (08:26→16:08)
[2019-07-23] MEDS: LISINOPRIL 10 MG TABLET PO SCH (08:26)
[2019-07-23] MEDS: VALPROIC ACID 250 MG/5 ML SYRUP UDCUP PO SCH ×2 (08:27→20:42)
[2019-07-23] MEDS: HALOPERIDOL 10 MG TABLET PO SCH ×2 (08:27→20:41)
[2019-07-23 16:30] VITALS: BP 132/60
[2019-07-23 17:06] LABS: GLUCOMETER DEV NAME(LOC) 3E.C; GLUCOSE,POINT OF CARE 70 MG/DL (70-110)
[2019-07-24] MEDS ORDERED: BENZ1TAB10 PO (00:47)
[2019-07-24] MEDS ORDERED: HALO10 PO ×2 (00:47)
[2019-07-24] MEDS ORDERED: LISI-661 PO (00:49)
[2019-07-24] MEDS ORDERED: VALP250C48 PO (00:49)
[2019-07-24 08:37] VITALS: BP 130/75
[2019-07-24] MEDS: LISINOPRIL 10 MG TABLET PO SCH (10:09)
[2019-07-24] MEDS: BENZTROPINE MESYLATE 1 MG TABLET PO SCH (10:10)
[2019-07-24] MEDS: VALPROIC ACID 250 MG/5 ML SYRUP UDCUP PO SCH (10:10)
[2019-07-24] MEDS: HALOPERIDOL 10 MG TABLET PO SCH (10:10)
== END 2019-07-24 15:30 | disposition home or self-care (01) | DRG 885 ==
LOC: EMS 15:31 → 3EC 21:00
PROVIDERS: ADMIT Psychiatry & Neurology Child & Adolescent Psychiatry; ATTEND Psychiatry & Neurology Child & Adolescent Psychiatry
DX: F20.0 Paranoid schizophrenia (principal); E11.649 Type 2 diabetes mellitus with hypoglycemia without coma; D64.9 Anemia, unspecified; D72.819 Decreased white blood cell count, unspecified; F31.9 Bipolar disorder, unspecified; G47.00 Insomnia, unspecified; I10 Essential (primary) hypertension; K21.9 Gastro-esophageal reflux disease without esophagitis; F41.9 Anxiety disorder, unspecified; Z72.0 Tobacco use
CPT/HCPCS: G0480

== ENCOUNTER 2019-08-24 03:59 | Emergency (ER) | payer MEDICAID, OTHER ==
[~2019-08-24] VITALS: Ht 172.7 cm; Wt 90.9 kg
[~2019-08-24 03:59] MED LIST changes: +BENZ1TAB10 PO; -BENZ1TAB70 PO; -DIVA-76 PO; -FOLI1 PO; -LACT30L PO; -METF-444 PO; -THIA100T67 PO; +VALP250C48 PO
[2019-08-24 04:01] VITALS: BP 148/108
== END 2019-08-24 04:08 | disposition left against medical advice (07) ==
LOC: EMS 03:59
DX: R07.89 Other chest pain (principal); Z53.21 Procedure and treatment not carried out due to patient leaving prior to being seen by health care provider
CPT/HCPCS: 93005

== ENCOUNTER 2019-10-26 11:09 | Emergency (ER) | payer OTHER ==
[~2019-10-26] VITALS: Ht 165.1 cm; Wt 68.2 kg
[2019-10-26 11:43] LABS: AMPHET/METH SCREEN,URINE NEGATIVE (NEGATIVE); BARBITURATE SCREEN, URINE NEGATIVE (NEGATIVE); BENZODIAZEPINES SCREEN,URINE NEGATIVE (NEGATIVE); CANNABINOID SCREEN,URINE NEGATIVE (NEGATIVE); COCAINE SCREEN,URINE NEGATIVE (NEGATIVE); METHADONE SCREEN, URINE NEGATIVE (NEGATIVE); OPIATE SCREEN,URINE NEGATIVE (NEGATIVE); PHENCYCLIDINE SCREEN,URINE NEGATIVE (NEGATIVE)
[2019-10-26 11:49] LABS: BASOPHILS % (AUTO) 0.7 % (0.0-2.0); EOSINOPHILS % (AUTO) 0.5 % (1.0-6.0); HEMATOCRIT 43.4 % (41-53); HEMOGLOBIN 14.3 g/dL (13.5-17.5); LYMPHOCYTES # (AUTO) 1.3 K/uL (1.0-4.8); MEAN CORPUSCULAR HEMOGLOBIN 31.5 pg (26.0-34.0); MEAN CORPUSCULAR VOLUME 96 fL (80-100); MONOCYTES # (AUTO) 0.3 K/uL (0.1-1.0); NEUTROPHILS # (AUTO) 1.9 K/uL (1.8-7.7); NEUTROPHILS % (AUTO) 54.8 % (40.0-70.0); PLATELET COUNT (AUTO) 212 K/uL (150-450); RED BLOOD CELL COUNT(AUTO) 4.54 MIL/uL (4.50-5.90); RED CELL DISTRIBUTION WIDTH 14.7 % (11.5-14.5)
[2019-10-26 12:27] LABS: ALANINE AMINOTRANSFERASE 25 U/L (12-78); ALBUMIN 3.8 g/dL (3.4-5.0); ALKALINE PHOSPHATASE 87 U/L (46-116); ASPARTATE AMINOTRANSFERASE < 5 U/L (15-37); BILIRUBIN,TOTAL 0.2 mg/dL (0.1-1.0); CALCIUM, TOTAL 8.8 mg/dL (8.8-10.5); CHLORIDE 107 mmol/L (98-107); CREATININE 1.02 mg/dL (0.60-1.30); GLOMERULAR FILTR. RATE CALC > 60 mL/min (>60); GLUCOSE,RANDOM 84 mg/dL (70-110); POTASSIUM 4.4 mmol/L (3.5-5.1); SODIUM SERUM 143 mmol/L (136-145); UREA NITROGEN, BLOOD 21 mg/dL (7-18)
[2019-10-26 12:28] LABS: VALPROIC ACID < 3 mcg/mL (50-100)
[2019-10-26 12:31] LABS: ANION GAP 8 mmol/L (8-16); CARBON DIOXIDE 28 mmol/L (22-29)
[2019-10-26 13:11] VITALS: BP 150/87
== END 2019-10-26 13:27 | disposition home or self-care (01) ==
LOC: EMS 11:12
DX: F20.0 Paranoid schizophrenia (principal); F31.9 Bipolar disorder, unspecified; I10 Essential (primary) hypertension; F17.210 Nicotine dependence, cigarettes, uncomplicated; Z59.0 Homelessness; Z79.899 Other long term (current) drug therapy
CPT/HCPCS: 36415; 80053; 80164; 80307; 85025; 99284; G0480

== ENCOUNTER 2019-11-08 17:20 | Inpatient (IN) | payer MEDICAID ==
[2019-11-08] MEDS ORDERED: LORazepam 2 MG/ML VIAL IM ONE (17:30)
[2019-11-08] MEDS ORDERED: DiphenhydrAMINE HCL 50 MG/ML VIAL IM ONE ×2 (17:30→18:30)
[2019-11-08] MEDS ORDERED: HALOPERIDOL LACTATE 5 MG/ML VIAL IM ONE (17:30)
[2019-11-08] MEDS ORDERED: DiphenhydrAMINE HCL 50 MG/ML VIAL ONE (17:44)
[2019-11-08] MEDS ORDERED: HALOPERIDOL LACTATE 5 MG/ML VIAL ONE (17:44)
[2019-11-08] MEDS ORDERED: LORazepam 2 MG/ML VIAL ONE (17:44)
[2019-11-08] MEDS ORDERED: INFLUENZA VIRUS VACCINE QVS 2019-20 (3YR+)/PF 60 MCG/0.5 ML SYRINGE IM ONE (18:00)
[2019-11-08 21:19] LABS: GLUCOMETER DEV NAME(LOC) BV3S.; GLUCOSE,POINT OF CARE 106 MG/DL (70-110)
[2019-11-08] MEDS ORDERED: DEXTROSE 50%-WATER 25 GM/50 ML SYRINGE IVP PRN (21:30)
[2019-11-08] MEDS ORDERED: INSULIN LISPRO 100 UNITS/ML SQ PRN (21:30)
[2019-11-09] MEDS ORDERED: GLUCAGON,HUMAN RECOMBINANT 1 MG VIAL IM PRN (04:45)
[2019-11-09] MEDS ORDERED: INSULIN LISPRO 100 UNITS/ML SQ PRN (04:45)
[2019-11-09] MEDS: MetFORMIN HCL 500 MG TABLET PO SCH (06:18)
[2019-11-09 06:31] LABS: GLUCOMETER DEV NAME(LOC) BV3S.; GLUCOSE,POINT OF CARE 80 MG/DL (70-110)
[2019-11-09 08:19] VITALS: BP 151/80
[2019-11-09] MEDS: LISINOPRIL 10 MG TABLET PO SCH (08:58)
[2019-11-09] MEDS: LORazepam 2 MG TABLET PO PRN (08:58)
[2019-11-09] MEDS ORDERED: ONDANSETRON HCL 4 MG TABLET PO PRN (11:00)
[2019-11-09] MEDS ORDERED: MAGNESIUM HYDROXIDE SUSPENSION 30 ML UDCUP PO PRN (11:00)
[2019-11-09] MEDS ORDERED: PETROLATUM,WHITE 28 GM JELLY TP PRN (11:00)
[2019-11-09] MEDS ORDERED: OMEPRAZOLE 20 MG CAPSULE PO PRN (11:00)
[2019-11-09] MEDS ORDERED: DOCUSATE SODIUM 100 MG CAPSULE PO PRN (11:00)
[2019-11-09] MEDS ORDERED: ALBUTEROL SULFATE HFA 90 MCG/PUFF 8 GM INHALER IH PRN (11:00)
[2019-11-09] MEDS ORDERED: ACETAMINOPHEN 325 MG TABLET PO PRN (11:00)
[2019-11-09] MEDS ORDERED: CloNIDine HCL 0.1 MG TABLET PO PRN (11:00)
[2019-11-09] MEDS ORDERED: MAG HYDROX/AL HYDROX/SIMETH ES 30 ML SUSPENSION UDCUP PO PRN (11:00)
[2019-11-09] MEDS ORDERED: BENZOCAINE/MENTHOL LOZENGE MM PRN (11:00)
[2019-11-09] MEDS ORDERED: BACITRACIN 28.4 GM OINTMENT TP PRN (11:00)
[2019-11-09] MEDS ORDERED: LOPERAMIDE HCL 2 MG CAPSULE PO PRN (11:00)
[2019-11-09] MEDS ORDERED: IBUPROFEN 600 MG TABLET PO PRN (11:00)
[2019-11-09 14:03] LABS: GLUCOMETER DEV NAME(LOC) BV3S.; GLUCOSE,POINT OF CARE 93 MG/DL (70-110)
[2019-11-09 16:52] LABS: GLUCOMETER DEV NAME(LOC) BV3S.; GLUCOSE,POINT OF CARE 118 MG/DL (70-110)
[2019-11-09 17:09] VITALS: BP 125/66
[2019-11-09] MEDS: TraZODone HCL 50 MG TABLET PO SCH (20:06)
[2019-11-09] MEDS: OLANZapine 7.5 MG TABLET PO SCH (20:06)
[2019-11-09 20:51] LABS: GLUCOMETER DEV NAME(LOC) BV3S.; GLUCOSE,POINT OF CARE 102 MG/DL (70-110)
[2019-11-10 05:40] VITALS: BP 112/55
[2019-11-10] MEDS: MetFORMIN HCL 500 MG TABLET PO SCH (06:49)
[2019-11-10] MEDS: LISINOPRIL 10 MG TABLET PO SCH (08:31)
[2019-11-10 08:33] VITALS: BP 132/79
[2019-11-10 08:36] LABS: EOSINOPHILS % (AUTO) 1.7 % (1.0-6.0); HEMATOCRIT 42.9 % (41-53); HEMOGLOBIN 13.9 g/dL (13.5-17.5); LYMPHOCYTES # (AUTO) 1.3 K/uL (1.0-4.8); LYMPHOCYTES % (AUTO) 40.8 % (22.0-44.0); MEAN CORPUSCULAR HEMOGLOBIN 30.8 pg (26.0-34.0); MEAN CORPUSCULAR HGB CONC 32.4 G/dL (31.0-37.0); MEAN CORPUSCULAR VOLUME 95 fL (80-100); MONOCYTES # (AUTO) 0.3 K/uL (0.1-1.0); NEUTROPHILS # (AUTO) 1.4 K/uL (1.8-7.7); NEUTROPHILS % (AUTO) 45.5 % (40.0-70.0); PLATELET COUNT (AUTO) 175 K/uL (150-450); RED CELL DISTRIBUTION WIDTH 14.7 % (11.5-14.5)
[2019-11-10 08:50] LABS: HEMOGLOBIN A1C 5.9 % (3.8-5.6)
[2019-11-10 09:03] LABS: ALANINE AMINOTRANSFERASE 29 U/L (12-78); ALBUMIN 3.5 g/dL (3.4-5.0); ALKALINE PHOSPHATASE 69 U/L (46-116); ANION GAP 7 mmol/L (8-16); ASPARTATE AMINOTRANSFERASE 6 U/L (15-37); BILIRUBIN,TOTAL 0.3 mg/dL (0.1-1.0); CALCIUM, TOTAL 8.7 mg/dL (8.8-10.5); CARBON DIOXIDE 29 mmol/L (22-29); CHLORIDE 107 mmol/L (98-107); CHOL/HDL RATIO 3.2 (4.2-7.3); CHOLESTEROL 152 mg/dL (131-200); CREATININE 0.76 mg/dL (0.60-1.30); FREE T4 (FREE THYROXINE) 0.82 ng/dL (0.76-1.46); GLOMERULAR FILTR. RATE CALC > 60 mL/min (>60); GLUCOSE,RANDOM 112 mg/dL (70-110); HDL CHOLESTEROL 48 mg/dL (40-60); LDL CHOL (CALC.) 88 mg/dL (0-130); SODIUM SERUM 143 mmol/L (136-145); THYROID STIMULATING HORMONE 1.09 uIU/mL (0.36-3.74); TOTAL PROTEIN, SERUM 6.7 g/dL (6.4-8.2); TRIGLYCERIDES 78 mg/dL (15-150); UREA NITROGEN, BLOOD 18 mg/dL (7-18)
[2019-11-10 11:28] LABS: GLUCOMETER DEV NAME(LOC) BV3S.; GLUCOSE,POINT OF CARE 58 MG/DL (70-110)
[2019-11-10 11:56] LABS: GLUCOMETER DEV NAME(LOC) BV3S.; GLUCOSE,POINT OF CARE 63 MG/DL (70-110)
[2019-11-10 13:04] LABS: GLUCOMETER DEV NAME(LOC) BV3S.; GLUCOSE,POINT OF CARE 109 MG/DL (70-110)
[2019-11-10 16:00] VITALS: BP 138/80
[2019-11-10] MEDS: LORazepam 2 MG TABLET PO PRN (16:31)
[2019-11-10 17:16] LABS: GLUCOMETER DEV NAME(LOC) BV3S.; GLUCOSE,POINT OF CARE 100 MG/DL (70-110)
[2019-11-10] MEDS: TraZODone HCL 50 MG TABLET PO SCH (20:16)
[2019-11-10] MEDS: ZOLPIDEM TARTRATE 10 MG TABLET PO PRN (20:16)
[2019-11-10] MEDS: OLANZapine 7.5 MG TABLET PO SCH (20:16)
[2019-11-11 05:49] VITALS: BP 128/76
[2019-11-11] MEDS: LISINOPRIL 10 MG TABLET PO SCH (08:37)
[2019-11-11 09:39] VITALS: BP 148/77
[2019-11-11 16:06] VITALS: BP 135/79
[2019-11-11] MEDS: LORazepam 2 MG TABLET PO PRN (19:48)
[2019-11-11] MEDS: ZOLPIDEM TARTRATE 10 MG TABLET PO PRN (20:09)
[2019-11-11] MEDS: OLANZapine 7.5 MG TABLET PO SCH (20:09)
[2019-11-11] MEDS: TraZODone HCL 50 MG TABLET PO SCH (20:09)
[2019-11-12 03:42] VITALS: BP 126/74
[2019-11-12 08:07] VITALS: BP 120/65
[2019-11-12] MEDS: LISINOPRIL 10 MG TABLET PO SCH (08:43)
[2019-11-12] MEDS: LORazepam 2 MG TABLET PO PRN ×2 (16:03→20:30)
[2019-11-12 16:04] VITALS: BP 131/87
[2019-11-12] MEDS: ZOLPIDEM TARTRATE 10 MG TABLET PO PRN (20:30)
[2019-11-12] MEDS: OLANZapine 7.5 MG TABLET PO SCH (20:30)
[2019-11-12] MEDS: TraZODone HCL 50 MG TABLET PO SCH (20:30)
[2019-11-13 03:45] VITALS: BP 138/90
[2019-11-13 08:09] VITALS: BP 135/71
[2019-11-13] MEDS: LISINOPRIL 10 MG TABLET PO SCH (09:43)
[2019-11-13 16:05] VITALS: BP 135/79
[2019-11-13] MEDS: OLANZapine 7.5 MG TABLET PO SCH (21:00)
[2019-11-13] MEDS: TraZODone HCL 50 MG TABLET PO SCH (21:00)
[2019-11-14 00:44] VITALS: BP 145/92
[2019-11-14 08:08] VITALS: BP 142/82
[2019-11-14] MEDS: LISINOPRIL 10 MG TABLET PO SCH (08:17)
[2019-11-14] MEDS ORDERED: OLAN15TA21 PO (14:20)
[2019-11-14] MEDS ORDERED: TRAZ-184 PO (14:20)
[2019-11-14] MEDS ORDERED: LISI-661 PO (14:20)
== END 2019-11-14 15:45 | disposition home or self-care (01) | DRG 750 ==
LOC: B3A 17:38
PROVIDERS: ADMIT Psychiatry & Neurology Psychiatry; ATTEND Psychiatry & Neurology Psychiatry
DX: F20.0 Paranoid schizophrenia (principal); E11.9 Type 2 diabetes mellitus without complications; F17.200 Nicotine dependence, unspecified, uncomplicated; G47.00 Insomnia, unspecified; I10 Essential (primary) hypertension; J44.9 Chronic obstructive pulmonary disease, unspecified; K21.9 Gastro-esophageal reflux disease without esophagitis; Z71.6 Tobacco abuse counseling; Z79.899 Other long term (current) drug therapy
CPT/HCPCS: 83036; 84439; 84443; J1200; J1630; J2060

== ENCOUNTER 2020-01-02 16:54 | Inpatient (IN) | payer MEDICAID ==
[~2020-01-02] VITALS: Ht 170.2 cm; Wt 79.3 kg
[~2020-01-02 16:54] MED LIST changes: -BENZ1TAB10 PO; -HALO10 PO; +OLAN15TA21 PO; +TRAZ-184 PO; -VALP250C48 PO
[2020-01-02] MEDS ORDERED: HALOPERIDOL 5 MG TABLET PO PRN (18:45)
[2020-01-02 19:40] VITALS: BP 149/76
[2020-01-02] MEDS: LISINOPRIL 10 MG TABLET PO SCH (21:20)
[2020-01-03 03:40] VITALS: BP 144/85
[2020-01-03] MEDS ORDERED: MAG HYDROX/AL HYDROX/SIMETH ES 30 ML SUSPENSION UDCUP PO PRN (07:45)
[2020-01-03] MEDS ORDERED: PETROLATUM,WHITE 28 GM JELLY TP PRN (07:45)
[2020-01-03] MEDS ORDERED: CloNIDine HCL 0.1 MG TABLET PO PRN (07:45)
[2020-01-03] MEDS ORDERED: ACETAMINOPHEN 325 MG TABLET PO PRN (07:45)
[2020-01-03] MEDS ORDERED: ALBUTEROL SULFATE HFA 90 MCG/PUFF 8 GM INHALER IH PRN (07:45)
[2020-01-03] MEDS ORDERED: MAGNESIUM HYDROXIDE SUSPENSION 30 ML UDCUP PO PRN (07:45)
[2020-01-03] MEDS ORDERED: OMEPRAZOLE 20 MG CAPSULE PO PRN (07:45)
[2020-01-03] MEDS ORDERED: IBUPROFEN 600 MG TABLET PO PRN (07:45)
[2020-01-03] MEDS ORDERED: BACITRACIN 28.4 GM OINTMENT TP PRN (07:45)
[2020-01-03] MEDS ORDERED: DOCUSATE SODIUM 100 MG CAPSULE PO PRN (07:45)
[2020-01-03] MEDS ORDERED: ONDANSETRON HCL 4 MG TABLET PO PRN (07:45)
[2020-01-03] MEDS ORDERED: LOPERAMIDE HCL 2 MG CAPSULE PO PRN (07:45)
[2020-01-03] MEDS ORDERED: BENZOCAINE/MENTHOL LOZENGE MM PRN (07:45)
[2020-01-03 08:18] LABS: BASOPHILS % (AUTO) 0.4 % (0.0-2.0); EOSINOPHILS % (AUTO) 3.1 % (1.0-6.0); HEMATOCRIT 45.1 % (41-53); HEMOGLOBIN 15.2 g/dL (13.5-17.5); LYMPHOCYTES # (AUTO) 1.5 K/uL (1.0-4.8); LYMPHOCYTES % (AUTO) 46.4 % (22.0-44.0); MEAN CORPUSCULAR HEMOGLOBIN 31.8 pg (26.0-34.0); MEAN CORPUSCULAR HGB CONC 33.6 G/dL (31.0-37.0); MEAN CORPUSCULAR VOLUME 95 fL (80-100); MONOCYTES # (AUTO) 0.3 K/uL (0.1-1.0); MONOCYTES % (AUTO) 9.8 % (2.0-9.0); NEUTROPHILS # (AUTO) 1.3 K/uL (1.8-7.7); NEUTROPHILS % (AUTO) 40.3 % (40.0-70.0); PLATELET COUNT (AUTO) 180 K/uL (150-450); RED BLOOD CELL COUNT(AUTO) 4.78 MIL/uL (4.50-5.90); RED CELL DISTRIBUTION WIDTH 14.3 % (11.5-14.5)
[2020-01-03 08:34] LABS: HEMOGLOBIN A1C 5.7 % (3.8-5.6)
[2020-01-03] MEDS: LISINOPRIL 10 MG TABLET PO SCH (08:45)
[2020-01-03 09:00] LABS: ALANINE AMINOTRANSFERASE 31 U/L (12-78); ALBUMIN 3.9 g/dL (3.4-5.0); ALKALINE PHOSPHATASE 83 U/L (46-116); ANION GAP 12 mmol/L (8-16); ASPARTATE AMINOTRANSFERASE 8 U/L (15-37); BILIRUBIN,TOTAL 0.4 mg/dL (0.1-1.0); CALCIUM, TOTAL 8.7 mg/dL (8.8-10.5); CARBON DIOXIDE 23 mmol/L (22-29); CHLORIDE 107 mmol/L (98-107); CHOL/HDL RATIO 2.7 (4.2-7.3); CHOLESTEROL 128 mg/dL (131-200); CREATININE 0.84 mg/dL (0.60-1.30); GLOMERULAR FILTR. RATE CALC > 60 mL/min (>60); GLUCOSE,RANDOM 82 mg/dL (70-110); HDL CHOLESTEROL 47 mg/dL (40-60); LDL CHOL (CALC.) 69 mg/dL (0-130); SODIUM SERUM 142 mmol/L (136-145); THYROID STIMULATING HORMONE 0.76 uIU/mL (0.36-3.74); TOTAL PROTEIN, SERUM 7.2 g/dL (6.4-8.2); TRIGLYCERIDES 60 mg/dL (15-150); UREA NITROGEN, BLOOD 20 mg/dL (7-18)
[2020-01-03 09:08] VITALS: BP 126/66
[2020-01-03] MEDS ORDERED: TraZODone HCL 50 MG TABLET PO PRN (11:00)
[2020-01-03 16:06] VITALS: BP 122/71
[2020-01-03] MEDS: OLANZapine 7.5 MG TABLET PO SCH (20:33)
[2020-01-03] MEDS: LORazepam 2 MG TABLET PO PRN (20:33)
[2020-01-04 06:37] VITALS: BP 111/66
[2020-01-04] MEDS: LISINOPRIL 10 MG TABLET PO SCH (08:03)
[2020-01-04 08:06] VITALS: BP 141/77
[2020-01-04 16:05] VITALS: BP 100/75
[2020-01-04] MEDS: OLANZapine 7.5 MG TABLET PO SCH (20:31)
[2020-01-05 00:37] VITALS: BP 115/71
[2020-01-05 08:02] VITALS: BP 152/76
[2020-01-05] MEDS: LISINOPRIL 10 MG TABLET PO SCH (08:08)
[2020-01-05] MEDS: LORazepam 2 MG TABLET PO PRN ×2 (12:24→16:28)
[2020-01-05 16:14] VITALS: BP 131/77
[2020-01-05] MEDS: OLANZapine 7.5 MG TABLET PO SCH (20:13)
[2020-01-05] MEDS: ZOLPIDEM TARTRATE 10 MG TABLET PO PRN (20:13)
[2020-01-06 05:42] VITALS: BP 118/74
[2020-01-06 08:03] VITALS: BP 140/92
[2020-01-06] MEDS: LISINOPRIL 10 MG TABLET PO SCH (08:21)
[2020-01-06 16:04] VITALS: BP 135/74
[2020-01-06] MEDS: LORazepam 2 MG TABLET PO PRN (16:18)
[2020-01-06] MEDS: OLANZapine 7.5 MG TABLET PO SCH (20:46)
[2020-01-07 03:43] VITALS: BP 139/85
[2020-01-07] MEDS: LISINOPRIL 10 MG TABLET PO SCH (08:06)
[2020-01-07 08:14] VITALS: BP 135/76
[2020-01-07 16:04] VITALS: BP 139/85
[2020-01-07] MEDS: LORazepam 2 MG TABLET PO PRN (16:08)
[2020-01-07] MEDS: ZOLPIDEM TARTRATE 10 MG TABLET PO PRN (20:24)
[2020-01-07] MEDS: OLANZapine 7.5 MG TABLET PO SCH (20:24)
[2020-01-08] MEDS: LISINOPRIL 10 MG TABLET PO SCH (08:25)
[2020-01-08 08:39] VITALS: BP 134/78
[2020-01-08 08:50] LABS: APPEARANCE,URINE CLEAR (CLEAR); BILIRUBIN,URINE NEGATIVE (NEGATIVE); GLUCOSE, URINE (UA) NEGATIVE (NEGATIVE); KETONES,URINE NEGATIVE (NEGATIVE); LEUKOCYTE ESTERASE ,URINE NEGATIVE (NEGATIVE); NITRATE,URINE NEGATIVE (NEGATIVE); OCCULT BLOOD,URINE NEGATIVE (NEGATIVE); PROTEIN,URINE NEGATIVE (NEGATIVE); UROBILINOGEN,URINE 0.2 mg/dL (<=1.0)
[2020-01-08 08:54] LABS: AMPHET/METH SCREEN,URINE NEGATIVE (NEGATIVE); BARBITURATE SCREEN, URINE NEGATIVE (NEGATIVE); BENZODIAZEPINES SCREEN,URINE NEGATIVE (NEGATIVE); CANNABINOID SCREEN,URINE NEGATIVE (NEGATIVE); COCAINE SCREEN,URINE NEGATIVE (NEGATIVE); METHADONE SCREEN, URINE NEGATIVE (NEGATIVE); OPIATE SCREEN,URINE NEGATIVE (NEGATIVE)
[2020-01-08 08:57] LABS: PHENCYCLIDINE SCREEN,URINE NEGATIVE (NEGATIVE)
[2020-01-08 16:43] VITALS: BP 144/89
[2020-01-08] MEDS: OLANZapine 7.5 MG TABLET PO SCH (20:35)
[2020-01-09] MEDS: LISINOPRIL 10 MG TABLET PO SCH (08:15)
[2020-01-09 08:54] VITALS: BP 146/83
[2020-01-09 16:29] VITALS: BP 159/86
[2020-01-09 17:13] VITALS: BP 159/86
== END 2020-01-09 17:28 | disposition home or self-care (01) | DRG 750 ==
LOC: B3A 16:54
PROVIDERS: ADMIT Psychiatry & Neurology Psychiatry; ATTEND Psychiatry & Neurology Psychiatry
DX: F20.0 Paranoid schizophrenia (principal); E11.9 Type 2 diabetes mellitus without complications; G47.00 Insomnia, unspecified; I10 Essential (primary) hypertension; J44.9 Chronic obstructive pulmonary disease, unspecified; K21.9 Gastro-esophageal reflux disease without esophagitis; F17.200 Nicotine dependence, unspecified, uncomplicated; Z56.0 Unemployment, unspecified; Z72.89 Other problems related to lifestyle
CPT/HCPCS: 80307; 83036; 84439; 84443; 86592

== ENCOUNTER 2023-04-29 00:42 | Emergency (ER) | payer MEDICAID ==
[~2023-04-29] VITALS: Ht 188 cm; Wt 85.9 kg
[~2023-04-29 00:42] MED LIST changes: +RISP2TAB86 PO; -TRAZ-184 PO
[2023-04-29 00:50] VITALS: TEMP 98.3
[2023-04-29 01:15] VITALS: BP 151/85; PULSE 76; RESP 16
[2023-04-29] MEDS ORDERED: OLANZapine 5 MG TABLET PO ONE (02:30)
== END 2023-04-29 03:00 | disposition home or self-care (01) ==
LOC: EMS 00:49
DX: F20.0 Paranoid schizophrenia (principal); F31.9 Bipolar disorder, unspecified; I10 Essential (primary) hypertension; F17.210 Nicotine dependence, cigarettes, uncomplicated; Z59.00 Homelessness unspecified
CPT/HCPCS: 99284; Z7502; Z7610